=== PATIENT | male | born 1990 | race Caucasian/White ===

== ENCOUNTER 2020-12-16 15:51 | Observation (INO) ==
[2020-12-16] MEDS ORDERED: ONDANSETRON INJ 2 MG/ML 2 ML VIAL IV STA (16:33)
[2020-12-16] MEDS ORDERED: MoRPHine SULFATE 4 MG/ML 1 ML CARP\\VIAL IV PRN (16:33)
[2020-12-16] MEDS ORDERED: MoRPHine SULFATE 4 MG/ML 1 ML CARP\\VIAL IV STA (16:33)
[2020-12-16] MEDS ORDERED: KETOROLAC TROMETHAMINE 15 MG/ML VIAL IV STA (16:33)
--- NOTE | 2020-12-16 16:38 | Emergency Department Note ---
Impression & Plan Acute upper abdominal pain, SBO (small bowel obstruction), Vomiting, History of colon cancer ED Provider Note NAME: DEQUAN MG AGE: 30 SEX: M : 1990 ARRIVES VIA: Walk-In INFORMANT: [Patient][family] ED PROVIDER(S): [Kojo Arshad MD] CHIEF COMPLAINT: Abdominal pain HISTORY OF PRESENT ILLNESS: The patient is a 30-year-old male who presents to the ED with epigastric abdominal pain that has been present all day, for over 9 hours. The patient states the pain is crampy and gets as bad as a 10/10. He has had some vomiting. The patient states that he has not noticed any gas passage from below. No urinary complaints. No fever, chills, cough. He feels short of breath when the pain comes on but otherwise he does not. Patient has a history of colon cancer. He did have a partial colectomy. Patient is currently on chemotherapy treatments, he is due for treatment in 2 days, he gets treatment every 2 weeks. The patient was told recently that his LFTs were elevated. He was also told that his pancreatic enzymes were somewhat elevated. He has no history of heavy alcohol use. He has never had a small bowel obstruction. REVIEW OF SYSTEMS: See HPI for pertinent positives and negatives. A total of ten systems were rev iewed and were otherwise negative. PMHx/PSHx: See Below SOCIAL HISTORY: See Below. PHYSICAL EXAM: GENERAL: Patient is in mild distress from pain. HEENT: No acute trauma, normocephalic atraumatic, mucous membranes moist, no nasal congestion, no scleral icterus. NECK: No stridor, no adenopathy, no meningismus, trachea is midline. LUNGS: Clear to auscultation bilaterally, no wheeze, no rhonchi, breath sounds equal. HEART: Without murmurs gallops or rubs, regular rate and rhythm. ABDOMEN: Soft, no distention, diffusely mildly tender, no hernias, no peritonitis. Scarring consistent with his previous partial colectomy. EXTREMITIES: No cyanosis or edema, full range of motion of all the joints without pain or difficulty, no signs for acute trauma. NEUROLOGIC: Oriented x 3, no acute motor or sensory deficits, no focal weakness. SKIN: No rash, no jaundice, no diaphoresis. DIFFERENTIAL DIAGNOSIS: Appendicitis, testicular torsion, infections, diverticulitis, UTI, obstruction, mesenteric ischemia, aortic pathology, inflammatory bowel disease, renal colic, PUD, pancreatitis, biliary pathology, hernia, volvulus, constipation, as well as other pathologies. EMERGENCY DEPARTMENT COURSE/PROCEDURES: MEDICAL DECISION MAKING: There is no leukocytosis. The patient is mildly anemic but this is baseline looking back at previous testing. There is a normal platelet count. No significant electrolyte abnormality or kidney failure. There were a few subtle liver enzyme elevations. Lipase was not elevated. Covid testing returned negative. Chest x-ray did not show pneumonia, mediastinal widening or free air. Abdominal and pelvis CT showed evidence for a small bowel obstruction, no free air seen, on exam, there was no peritonitis. The patient was not toxic or febrile. Patient received IV saline for hydration. He was given IV Zofran for nausea, IV morphine for pain, IV Toradol for pain. The patient had an NG tube placed to help decompress the bowel. I did speak with him about his findings and the need for a hospital stay. I did speak with general surgery. The patient should be managed medically for now. I did speak with case management, the on-call hospitalist was consulted. 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 Fernandez 08/22/2020 Family History Father Anxiety Grandmother (Maternal) Diabetes Grandfather (Maternal) Hypertension Mother Lung disease Denies family history of Ovarian cancer Prostate cancer Myocardial infarction Breast cancer Colorectal cancer Social History Smoking Status: Never smoker Second Hand Exposure: No; Hx Alcohol Use: Yes Hx Substance Use: Yes Last Used Substance Other:: 08/18 - marijuana Substance Use Type Other:: quit heroin 11 mo ago but has relapsed twice; most recent a few mo ago Preferred Language: Divehi Communication Ability: Effective [employer]il [employer] Scientist Required: No Beliefs That Will Affect Care: None marital status: Single Current Living Situation: Significant Other Current Living Situation Comment: mom and younger brother current occupational status: unemployed Feels Safe at Home: Yes Childhood Exposure to Second-Hand Smoke: Yes Seatbelt Use: sometimes Sunscreen Use: No Assistive Devices: None Allergies Allergies Allergy/AdvReac Type Severity Reaction Status Date / Time dexamethasone Allergy Intermediate WITHDRAW Verified 12/16/20 17:29 AFFECTS diphenhydramine AdvReac Intermediate Anxiety, Verified 12/16/20 17:29 [From Benadryl] RLS SSRI AdvReac Unknown RLS Uncoded 12/16/20 17:29 Home Meds Home Medications Medication Instructions Recorded Confirmed albuterol sulfate 2 puff INH Q4H PRN 09/20/20 12/16/20 ondansetron HCl 8 mg PO TID PRN 09/20/20 12/16/20 guanfacine [Intuniv ER] 2 mg PO HS 12/16/20 12/16/20 multivitamin 1 tab PO DAILY 12/16/20 12/16/20 pantoprazole 40 mg PO DAILY 12/16/20 12/16/20 triamcinolone acetonide 1 applic TOPICAL BID PRN 12/16/20 12/16/20 ziprasidone HCl [Geodon] 20 mg PO QDD 12/16/20 12/16/20 Results & Data (ED) Vital Signs Vital Signs - 24 hr 12/16/20 16:03 12/16/20 16:13 12/16/20 16:20 Temperature 36.8 C Temperature Source Temporal Artery Scan Pulse Rate 83 66 71 Pulse Rate from SpO2 Sensor Respiratory Rate 18 13 15 Blood Pressure 97/65 L Blood Pressure Mean 75 Pulse Oximetry 99 Oxygen Delivery Method Room Air Sepsis Recent Fever Within 48 Hours No Sepsis New/Unexplained Change in Mental Status No Sepsis Action Taken by Nursing No Action Required 12/16/20 16:30 12/16/20 16:40 12/16/20 16:56 Temperature Temperature Source Pulse Rate 78 76 61 Pulse Rate from SpO2 Sensor Respiratory Rate 28 H 15 17 Blood Pressure Blood Pressure Mean Pulse Oximetry Oxygen Delivery Method Sepsis Recent Fever Within 48 Hours Sepsis New/Unexplained Change in Mental Status Sepsis Action Taken by Nursing 12/16/20 17:00 12/16/20 17:10 12/16/20 17:20 Temperature Temperature Source Pulse Rate 69 66 55 L Pulse Rate from SpO2 Sensor Respiratory Rate 18 15 17 Blood Pressure Blood Pressure Mean Pulse Oximetry Oxygen Delivery Method Sepsis Recent Fever Within 48 Hours Sepsis New/Unexplained Change in Mental Status Sepsis Action Taken by Nursing 12/16/20 17:30 12/16/20 17:40 12/16/20 17:57 Temperature Temperature Source Pulse Rate 55 L 60 71 Pulse Rate from SpO2 Sensor 71 Respiratory Rate 18 21 22 Blood Pressure 134/70 Blood Pressure Mean 91 Pulse Oximetry 97 Oxygen Delivery Method Sepsis Recent Fever Within 48 Hours Sepsis New/Unexplained Change in Mental Status Sepsis Action Taken by Nursing 12/16/20 18:00 12/16/20 18:01 12/16/20 18:10 Temperature Temperature Source Pulse Rate 71 77 77 Pulse Rate from SpO2 Sensor 75 77 77 Respiratory Rate 18 19 25 H Blood Pressure 129/65 Blood Pressure Mean 86 Pulse Oximetry 95 98 99 Oxygen Delivery Method Sepsis Recent Fever Within 48 Hours Sepsis New/Unexplained Change in Mental Status Sepsis Action Taken by Nursing 12/16/20 18:20 12/16/20 18:30 12/16/20 18:31 Temperature Temperature Source Pulse Rate 84 63 64 Pulse Rate from SpO2 Sensor 82 61 65 Respiratory Rate 19 13 18 Blood Pressure 141/65 H Blood Pressure Mean 90 Pulse Oximetry 100 100 99 Oxygen Delivery Method Sepsis Recent Fever Within 48 Hours Sepsis New/Unexplained Change in Mental Status Sepsis Action Taken by Nursing 12/16/20 18:40 12/16/20 18:50 12/16/20 19:00 Temperature Temperature Source Pulse Rate 79 66 71 Pulse Rate from SpO2 Sensor 80 68 74 Respiratory Rate 22 18 19 Blood Pressure 146/79 H Blood Pressure Mean 101 Pulse Oximetry 99 100 99 Oxygen Delivery Method Sepsis Recent Fever Within 48 Hours Sepsis New/Unexplained Change in Mental Status Sepsis Action Taken by Nursing 12/16/20 19:01 12/16/20 19:10 Temperature Temperature Source Pulse Rate 71 65 Pulse Rate from SpO2 Sensor 70 65 Respiratory Rate 21 19 Blood Pressure Blood Pressure Mean Pulse Oximetry 100 96 Oxygen Delivery Method Sepsis Recent Fever Within 48 Hours Sepsis New/Unexplained Change in Mental Status Sepsis Action Taken by [facility] Medications Current Medication List: was personally reviewed by me Laboratory Data Attestation: I reviewed the patient's lab results. Result diagrams: 12/16/20 16:58 12/16/20 16:57 Lab Results 12/16/20 12/16/20 12/16/20 Range/Units 16:57 16:58 18:27 WBC 6.60 (4.8-10.8) K/uL RBC 4.57 L (4.7-6.1) M/uL Hgb 12.1 L (14.0-18.0) g/dL Hct 37.2 L (42-52) % MCV 81.4 (80-100) fL MCH 26.5 (25-34) pg MCHC 32.5 (32-36) g/dL RDW Std Deviation 62.3 H (36.4-46.3) fL RDW Coeff of Manuel 21.1 H (11.5-14.5) % Plt Count 158 (130-400) K/uL MPV 9.5 (7.4-10.4) fL Immature Gran % (Auto) 0.3 % Neut % (Auto) 82.2 % Lymph % (Auto) 8.5 % Collier % (Auto) 8.5 % Eos % (Auto) 0.2 % Baso % (Auto) 0.3 % Neut # (Auto) 5.43 (1.4-6.5) K/uL Lymph # (Auto) 0.56 L (1.2-3.4) K/uL Collier # (Auto) 0.56 (0.11-0.59) K/uL Eos # (Auto) 0.01 (0-0.5) K/uL Baso # (Auto) 0.02 (0-0.2) K/uL Immature Gran # (Auto) 0.02 (0.00-0.02) K/uL Anisocytosis Present Ovalocytes 1+ Echinocytes 1+ Sodium 139 (136-145) mmol/L Potassium 4.0 (3.5-5.1) mmol/L Chloride 102 (98-107) mmol/L Carbon Dioxide 29 (21-32) mmol/L Anion Gap 7.0 (3-11) BUN 16 (7-18) mg/dl Creatinine 1.05 (0.6-1.4) mg/dl Est Cr Clr Drug Dosing 91.7 ml/min Est GFR ( Amer) 111.4 Est GFR (Non-Af Amer) 96.1 BUN/Creatinine Ratio 15.3 (10-20) Glucose 99 (70-99) mg/dl Calcium 10.0 (8.5-10.1) mg/dl Total Bilirubin 1.4 H (0.2-1) mg/dl AST 45 H (15-37) U/L ALT 68 (12-78) U/L Alkaline Phosphatase 128 H (45-117) U/L Total Protein 7.3 (6.4-8.2) gm/dl Albumin 4.3 (3.4-5.0) gm/dl Globulin 3.0 (2.5-4.0) gm/dl Albumin/Globulin Ratio 1.5 (0.9-2) Lipase 75 (73-393) U/L COVID-19 Eval [facility] SARS-CoV-2, RNA, NAAT (NEGATIVE) 12/16/20 Range/Units 18:27 WBC (4.8-10.8) K/uL RBC (4.7-6.1) M/uL Hgb (14.0-18.0) g/dL Hct (42-52) % MCV (80-100) fL MCH (25-34) pg MCHC (32-36) g/dL RDW Std Deviation (36.4-46.3) fL RDW Coeff of Manuel (11.5-14.5) % Plt Count (130-400) K/uL MPV (7.4-10.4) fL Immature Gran % (Auto) % Neut % (Auto) % Lymph % (Auto) % Collier % (Auto) % Eos % (Auto) % Baso % (Auto) % Neut # (Auto) (1.4-6.5) K/uL Lymph # (Auto) (1.2-3.4) K/uL Collier # (Auto) (0.11-0.59) K/uL Eos # (Auto) (0-0.5) K/uL Baso # (Auto) (0-0.2) K/uL Immature Gran # (Auto) (0.00-0.02) K/uL Anisocytosis Ovalocytes Echinocytes Sodium (136-145) mmol/L Potassium (3.5-5.1) mmol/L Chloride (98-107) mmol/L Carbon Dioxide (21-32) mmol/L Anion Gap (3-11) BUN (7-18) mg/dl Creatinine (0.6-1.4) mg/dl Est Cr Clr Drug Dosing ml/min Est GFR ( Amer) Est GFR (Non-Af Amer) BUN/Creatinine Ratio (10-20) Glucose (70-99) mg/dl Calcium (8.5-10.1) mg/dl Total Bilirubin (0.2-1) mg/dl AST (15-37) U/L ALT (12-78) U/L Alkaline Phosphatase (45-117) U/L Total Protein (6.4-8.2) gm/dl Albumin (3.4-5.0) gm/dl Globulin (2.5-4.0) gm/dl Albumin/Globulin Ratio (0.9-2) Lipase (73-393) U/L COVID-19 Eval Order SARS-CoV-2, RNA, NAAT NEGATIVE (NEGATIVE) Administered Medications Discontinued Medications Benzocaine/Butamben/Tetracaine HCl (Benzocain/Tetraca/Butam [place] 200 Appln/20 Gm Grimes) Confirm Administered Dose 1 appln EXT .STK-MED ONE Stop: 12/16/20 18:37 Last Admin: 12/16/20 18:36 Dose: 1 appln Documented by: [id number] Sodium Chloride (Nss 1000ml) 1,000 mls @ 999 mls/hr IV .Q1H1M MARISOL Stop: 12/16/20 17:45 Last Infusion: 12/16/20 18:11 Dose: 0 mls/hr Documented by: [id number] Admin: 12/16/20 16:59 Dose: 999 mls/hr Documented by: [id number] Ioversol (Ioversol 100ml) 93 ml IV ONCE ONE Stop: 12/16/20 17:53 Last Admin: 12/16/20 17:53 Dose: 93 ml Documented by: [id number] Ketorolac Tromethamine (Ketorolac Tromethamine 15 Mg/Ml Vial) 15 mg IV NOW STA Stop: 12/16/20 16:34 Last Admin: 12/16/20 16:59 Dose: 15 mg Documented by: [id number] Morphine Sulfate (Morphine Sulfate 4 Mg/Ml 1 Ml Carp\Vial) 4 mg IV NOW STA Stop: 12/16/20 16:34 Last Admin: 12/16/20 16:59 Dose: 4 mg Documented by: [id number] Ondansetron HCl (Ondansetron Inj 2 Mg/Ml 2 Ml Vial) 4 mg IV NOW STA Stop: 12/16/20 16:34 Last Admin: 12/16/20 16:59 Dose: 4 mg Documented by: [id number] Imaging Data Radiologist's Impression: XR chest 1V portable HISTORY: 30 years-old Male abd pain acute generalized abdominal pain with chest pain COMPARISON: CTA of the chest 09/20/2020, chest radiograph 09/20/2020 TECHNIQUE: Portable AP view of the chest FINDINGS: Cardiomediastinal and hilar silhouettes are within normal limits. Left IJ Imuenm-q-Gxys catheter distal tip terminates within the expected location of the proximal to mid SVC. No pneumothorax, pleural effusion, airspace consolidation or overt pulmonary edema. Bones of the chest appear normal. IMPRESSION: No acute process. ABDOMEN AND PELVIS CT WITH IV CONTRAST CT DOSE: 264.56 mGy.cm HISTORY: epig abd pain, poss obstruc TECHNIQUE: Multiaxial CT images of the abdomen and pelvis were performed following the use of intravenous contrast. A dose lowering technique was utilized adhering to the principles of ALARA. COMPARISON STUDY: Abdomen and pelvis CT 09/20/2020. FINDINGS: The lung bases are clear. No pneumoperitoneum. No pneumatosis. A few small scattered bone island seen within the pelvis/hips. These remain unchanged. The liver, gallbladder, adrenal glands, pancreas, and kidneys are unremarkable. No hydronephrosis. No retroperitoneal lymphadenopathy. Normal caliber abdominal aorta. The spleen is top normal in size measuring 12.7 cm in length. The bladder is unremarkable. No pelvic free fluid. Prior rectosigmoid anastomosis. Normal appendix measures up to 6 mm in diameter. This remains unchanged. There are few mildly dilated fluid-filled loops of small bowel seen within the mid to lower abdomen. These measure up to 3.2 cm diameter. There are decompressed distal ileal loops. Apparent transition point seen within the mid pelvis on image 269 at the level of the mid ileum. Therefore, these findings are concerning for a small bowel obstruction. IMPRESSION: 1. A few mildly dilated fluid-filled loops of small bowel within the mid to lower abdomen with an apparent transition point within the mid ileum as described above. Therefore, these findings are concerning for a small bowel obstruction. 2. Prior rectosigmoid anastomosis. 3. Normal appendix. Discharge Plan Visit Data Chief Complaint: Abdominal Pain Stated Complaint: ABD, VOMITITNG ED Provider: Kojo Arshad Discharge Problem: Acute upper abdominal pain, SBO (small bowel obstruction), Vomiting, History of colon cancer Patient Disposition: Admitted As Inpatient Condition: Fair Discharge Instructions Interventions: ED Discharge Assessment Last Done: 12/16/20 20:37 Discharge Problem: Vomiting Qualifiers: Vomiting type: unspecified Vomiting Intractability: non-intractable Nausea presence: without nausea Qualified Code(s): R11.11 - Vomiting without nausea
[2020-12-16] MEDS ORDERED: SODIUM CHLORIDE 0.9% 1000ML 1,000 ML IV SCH (16:45)
--- NOTE | 2020-12-16 17:00 | XRay Report ---
XR chest 1V portable HISTORY: 30 years-old Male abd pain acute generalized abdominal pain with chest pain COMPARISON: CTA of the chest 09/20/2020, chest radiograph 09/20/2020 TECHNIQUE: Portable AP view of the chest FINDINGS: Cardiomediastinal and hilar silhouettes are within normal limits. Left IJ Aagque-p-Tuqy catheter dist al tip terminates within the expected location of the proximal to mid SVC. No pneumothorax, pleural e ffusion, airspace consolidation or overt pulmonary edema. Bones of the chest appear normal. IMPRESSION: No acute process. ACT 112: Negative or not required by law. The above report was generated using voice recognition software. It may contain grammatical, syntax o r spelling errors. Electronically signed by: Anthony Grimes M.D. 12/16/2020 4:59 PM
[2020-12-16 17:06] LABS: Basophils # (auto) 0.02 K/uL (0-0.2); Basophils % (auto) 0.3 %; Eosinophils # (auto) 0.01 K/uL (0-0.5); Eosinophils % (auto) 0.2 %; Hematocrit (blood only) 37.2 % (42-52); Hemoglobin 12.1 g/dL (14.0-18.0); Immature Granulocytes # (auto) 0.02 K/uL (0.00-0.02); Immature Granulocytes % (auto) 0.3 %; Lymphocytes # (auto) 0.56 K/uL (1.2-3.4); Lymphocytes % (auto) 8.5 %; Mean Corpuscular Hemoglobin 26.5 pg (25-34); Mean Corpuscular Hgb Conc 32.5 g/dL (32-36); Mean Corpuscular Volume 81.4 fL (80-100); Mean Platelet Volume 9.5 fL (7.4-10.4); Monocytes # (auto) 0.56 K/uL (0.11-0.59); Monocytes % (auto) 8.5 %; Neutrophils # (auto) 5.43 K/uL (1.4-6.5); Neutrophils % (auto) 82.2 %; Platelet Count 158 K/uL (130-400); RDW Coefficient of Variation 21.1 % (11.5-14.5); RDW Standard Deviation 62.3 fL (36.4-46.3); Red Blood Count 4.57 M/uL (4.7-6.1)
[2020-12-16 17:24] LABS: Albumin Level 4.3 gm/dl (3.4-5.0); BUN Creatinine Ratio 15.3 (10-20); Creatinine Clr Calc Pharmacy 91.7 ml/min; Est GFR (African American) 111.4; Est GFR (Non-African American) 96.1
[2020-12-16 17:24] LABS: Anisocytosis Present; Echinocytes 1+; Ovalocytes 1+
[2020-12-16 17:26] LABS: Albumin Globulin Ratio 1.5 (0.9-2); Bilirubin,Total 1.4 mg/dl (0.2-1); Total Protein 7.3 gm/dl (6.4-8.2)
[2020-12-16] MEDS ORDERED: OPTIRAY 320 100ml IV ONE (17:52)
--- NOTE | 2020-12-16 18:12 | CT Scan Report ---
ABDOMEN AND PELVIS CT WITH IV CONTRAST CT DOSE: 264.56 mGy.cm HISTORY: epig abd pain, poss obstruc TECHNIQUE: Multiaxial CT images of the abdomen and pelvis were performed following the use of intrave nous contrast. A dose lowering technique was utilized adhering to the principles of ALARA. COMPARISON STUDY: Abdomen and pelvis CT 09/20/2020. FINDINGS: The lung bases are clear. No pneumoperitoneum. No pneumatosis. A few small scattered bone i sland seen within the pelvis/hips. These remain unchanged. The liver, gallbladder, adrenal glands, pa ncreas, and kidneys are unremarkable. No hydronephrosis. No retroperitoneal lymphadenopathy. Normal c aliber abdominal aorta. The spleen is top normal in size measuring 12.7 cm in length. The bladder is unremarkable. No pelvic free fluid. Prior rectosigmoid anastomosis. Normal appendix measures up to 6 mm in diameter. This remains unchanged. There are few mildly dilated fluid-filled loops of small todd l seen within the mid to lower abdomen. These measure up to 3.2 cm diameter. There are decompressed d istal ileal loops. Apparent transition point seen within the mid pelvis on image 269 at the level of the mid ileum. Therefore, these findings are concerning for a small bowel obstruction. IMPRESSION: 1. A few mildly dilated fluid-filled loops of small bowel within the mid to lower abdomen with an aaron arent transition point within the mid ileum as described above. Therefore, these findings are concern ing for a small bowel obstruction. 2. Prior rectosigmoid anastomosis. 3. Normal appendix. ACT 112: Negative or not required by law. Electronically signed by: Travis Ball M.D. 12/16/2020 6:10 PM
[2020-12-16] MEDS ORDERED: BENZOCAIN/TETRACA/BUTAM SPRAY 200 APPLN/20 GM SPRY EXT ONE (18:36)
--- NOTE | 2020-12-16 19:06 | XRay Report ---
KUB HISTORY: NG tube placement. COMPARISON: Abdomen and pelvis CT 12/16/2020. FINDINGS: Nasogastric tube terminates in the body of the stomach. Partially visualized left Port-A-Ca th terminates at the SVC. The lung bases appear clear. Mildly dilated gas-filled loops of small bowel consistent with the patient's known bowel obstruction. Residual contrast within the renal collecting systems from the prior CT examination. No pneumoperitoneum or pneumatosis. IMPRESSION: Nasogastric tube terminates in the body of the stomach. ACT 112: Negative or not required by law. Electronically signed by: Travis Ball M.D. 12/16/2020 7:04 PM
--- NOTE | 2020-12-16 19:28 | History & Physical Report ---
Date of Service December 16, 2020 Assessment & Plan (1) Small bowel obstruction: 30 yo M w/ hx Stage 3 colon cancer s/p resection, currently on chemotherapy admitted for N/V secondary to small bowel obstruction. Small Bowel Obstruction - CT A/P with IV contrast showing transition point at mid ileum with decompressed distal ileal loops indicative of SBO. - differential includes adhesions vs. viral gastroenteritis - NG tube on low intermittent suction, confirmed with KUB - NPO - surgery consult, appreciate recommendations going forward (2) Iron deficiency anemia: history of Hg 12.1, Hct 37.2 No recent iron studies, consider repeating outpatient On FOLFOX chemotherapy every 2 weeks, likely contributing. (3) Bipolar 1 disorder, depressed: continue guanfacine ER and ziprasidone per home regimen (4) History of colon surgery: colon resection for pelvic mass found to be stage 3 adenocarcinoma of colon with 2 positive lymph nodes performed at [facility] January 2020 SBO management as above DVT ppx: low risk for DVT; ambulate ad joby FEN/GI: NPO, NG tube to low intermittent suction, IV protonix BID Code status: Full Code Dispo: Med/Surg History of Present Illness Primary Care Provider: Luis Wayne MD 30-year-old male with a past medical history of stage III colon cancer status post surgical resection at [facility], currently on FOLFOX chemotherapy every 2 weeks,[facility]. Presented to the emergency department today for nausea vomiting and abdominal pain that started this morning. States that the abdominal pain started in his mid upper abdominal area and was it intermittent and crampy in nature. States that he had 4 episodes of emesis that were nonbilious, nonbloody without coffee- ground emesis. Of note patient had all of his upper teeth removed approximately 2 weeks ago due to severe abscessing and rotting of his teeth. He has since been on a mostly liquid and soft foods diet.Currently saying that his pain is in the epigastrium is not as bad and pain has relocated to the left lower quadrant. ER course: Pain control with Toradol 15 IV and morphine sulfate 4 mg IV once, CT abdomen pelvis with IV contrast significant for few mildly dilated fluid-filled loops of small bowel within the mid to lower abdomen with apparent transition point within the mid ileum. Concerning for small bowel obstruction. No retroperitoneal lymphadenopathy.NG tube placed. Allergies Allergy/AdvReac Type Severity Reaction Status Date / Time dexamethasone Allergy Intermediate WITHDRAW Verified 12/16/20 17:29 AFFECTS diphenhydramine AdvReac Intermediate Anxiety, Verified 12/16/20 17:29 [From Benadryl] RLS SSRI AdvReac Unknown RLS Uncoded 12/16/20 17:29 Home Medications Medication Instructions Recorded Confirmed Type albuterol sulfate 2 puff INH Q4H PRN 09/20/20 12/16/20 History ondansetron HCl 8 mg PO TID PRN 09/20/20 12/16/20 History guanfacine [Intuniv ER] 2 mg PO HS 12/16/20 12/16/20 History multivitamin 1 tab PO DAILY 12/16/20 12/16/20 History pantoprazole 40 mg PO DAILY 12/16/20 12/16/20 History triamcinolone acetonide 1 applic TOPICAL BID PRN 12/16/20 12/16/20 History ziprasidone HCl [Geodon] 20 mg PO QDD 12/16/20 12/16/20 History Past Med/Surg History Medical History Anxiety Bipolar disorder Chronic back pain Colorectal cancer w/ mets to lymph nodes; treated surgically + plan for chemo following port placement COPD (chronic obstructive pulmonary disease) Depression History of heroin abuse History of migraine COUNCIL (hard of hearing) Iron deficiency anemia PTSD (post-traumatic stress disorder) Surgical History History of bowel resection History of colonoscopy History of esophagogastroduodenoscopy (EGD) History of urologic surgery 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 Fernandez 08/22/2020 Family History Father Anxiety Grandmother (Maternal) Diabetes Grandfather (Maternal) Hypertension Mother Lung disease Denies family history of Ovarian cancer Prostate cancer Myocardial infarction Breast cancer Colorectal cancer Social History Smoking Status: Never smoker Second Hand Exposure: No; Hx Alcohol Use: Yes Hx Substance Use: Yes (pt states he quit) Last Used Substance Other:: 08/18 - marijuana Substance Use Type Other:: quit heroin 11 mo ago but has relapsed twice; most recent a few mo ago Preferred Language: Filipino Communication Ability: Effective Market Development Trainer Required: No Beliefs That Will Affect Care: None marital status: Single Current Living Situation: Significant Other Current Living Situation Comment: mom and younger brother current occupational status: unemployed Feels Safe at Home: Yes Childhood Exposure to Second-Hand Smoke: Yes Seatbelt Use: sometimes Sunscreen Use: No Assistive Devices: None Review of Systems Constitutional: + chills; no fever, no sweats, no body aches and no fatigue Respiratory: no cough, no dyspnea and no pain on inspiration Cardiovascular: no chest pain, no dyspnea, no palpitations, no lightheadedness and no edema Gastrointestinal: + abdominal pain, + heartburn, + nausea and + vomiting; no coffee ground emesis, no hematemesis, no constipation, no diarrhea/loose stools and no blood in stools Physical Exam Physical Exam: Constitutional: thin, young male with NG tube in, in NAD, conversational Eyes: EOMI, pupils equal and reactive bilaterally, no scleral icterus Cardiac: RRR, no murmurs, gallops or rubs. Normal S1, S2 Pulm: CTA BL, no wheezes, rhonchi, crackles or rubs, moving air well throughout both lungs Abd: soft, normal bowel sounds, tender to palp of LLQ, mild tenderness throughout, no rebound, no guarding, not rigid, Extremities: 2+ peripheral pulses, no edema Neuro: no focal deficits, moving all 4 limbs, A&Ox3 Skin: multiple superficial skin wounds from what appears to be previous puncture sites along arms BL, healed surgical scar midline abdomen Results & Data Results & Data ([facility]) Vital Signs (Past 12 Hours) Vital Signs Temp Pulse Resp BP Pulse Ox 12/16/20 16:03 36.8 C 83 18 97/65 L 99 Laboratory Results WBC 6.60 K/uL (4.8-10.8) 12/16/20 16:58 RBC 4.57 M/uL (4.7-6.1) L 12/16/20 16:58 Hgb 12.1 g/dL (14.0-18.0) L 12/16/20 16:58 Hct 37.2 % (42-52) L 12/16/20 16:58 MCV 81.4 fL (80-100) 12/16/20 16:58 MCH 26.5 pg (25-34) 12/16/20 16:58 MCHC 32.5 g/dL (32-36) 12/16/20 16:58 RDW Std Deviation 62.3 fL (36.4-46.3) H 12/16/20 16:58 RDW Coeff of Manuel 21.1 % (11.5-14.5) H 12/16/20 16:58 Plt Count 158 K/uL (130-400) 12/16/20 16:58 MPV 9.5 fL (7.4-10.4) 12/16/20 16:58 Immature Gran % (Auto) 0.3 % 12/16/20 16:58 Neut % (Auto) 82.2 % 12/16/20 16:58 Lymph % (Auto) 8.5 % 12/16/20 16:58 [place]man % (Auto) 8.5 % 12/16/20 16:58 Eos % (Auto) 0.2 % 12/16/20 16:58 Baso % (Auto) 0.3 % 12/16/20 16:58 Neut # (Auto) 5.43 K/uL (1.4-6.5) 12/16/20 16:58 Lymph # (Auto) 0.56 K/uL (1.2-3.4) L 12/16/20 16:58 [place]man # (Auto) 0.56 K/uL (0.11-0.59) 12/16/20 16:58 Eos # (Auto) 0.01 K/uL (0-0.5) 12/16/20 16:58 Baso # (Auto) 0.02 K/uL (0-0.2) 12/16/20 16:58 Immature Gran # (Auto) 0.02 K/uL (0.00-0.02) 12/16/20 16:58 Anisocytosis Present 12/16/20 16:58 Ovalocytes 1+ 12/16/20 16:58 Echinocytes 1+ 12/16/20 16:58 Sodium 139 mmol/L (136-145) 12/16/20 16:57 Potassium 4.0 mmol/L (3.5-5.1) 12/16/20 16:57 Chloride 102 mmol/L (98-107) 12/16/20 16:57 Carbon Dioxide 29 mmol/L (21-32) 12/16/20 16:57 Anion Gap 7.0 (3-11) 12/16/20 16:57 BUN 16 mg/dl (7-18) 12/16/20 16:57 Creatinine 1.05 mg/dl (0.6-1.4) 12/16/20 16:57 Est Cr Clr Drug Dosing 91.7 ml/min 12/16/20 16:57 Est GFR ( Amer) 111.4 12/16/20 16:57 Est GFR (Non-Af Amer) 96.1 12/16/20 16:57 BUN/Creatinine Ratio 15.3 (10-20) 12/16/20 16:57 Glucose 99 mg/dl (70-99) 12/16/20 16:57 Calcium 10.0 mg/dl (8.5-10.1) 12/16/20 16:57 Total Bilirubin 1.4 mg/dl (0.2-1) H 12/16/20 16:57 AST 45 U/L (15-37) H 12/16/20 16:57 ALT 68 U/L (12-78) 12/16/20 16:57 Alkaline Phosphatase 128 U/L (45-117) H 12/16/20 16:57 Total Protein 7.3 gm/dl (6.4-8.2) 12/16/20 16:57 Albumin 4.3 gm/dl (3.4-5.0) 12/16/20 16:57 Globulin 3.0 gm/dl (2.5-4.0) 12/16/20 16:57 Albumin/Globulin Ratio 1.5 (0.9-2) 12/16/20 16:57 Lipase 75 U/L (73-393) 12/16/20 16:57 COVID-19 Eval Order Covid19 [facility] 12/16/20 18:27 SARS-CoV-2, RNA, NAAT NEGATIVE (NEGATIVE) 12/16/20 18:27 Diagnostic Findings ABDOMEN AND PELVIS CT WITH IV CONTRAST IMPRESSION: 1. A few mildly dilated fluid-filled loops of small bowel within the mid to lower abdomen with an apparent transition point within the mid ileum as described above. Therefore, these findings are concerning for a small bowel obstruction. 2. Prior rectosigmoid anastomosis. 3. Normal appendix. Supervising Physician Co-Signing Physician Notes I personally saw and examined the patient. I verified all bateman points and agree with resident physician Dr. Jesika Armas with the following exceptions and/or additions: 30-year-old male with history of colon cancer. Sudden onset nausea, vomiting, abdominal pain. CT with small bowel obstruction. NG tube on low intermittent suction placed in ER. O/E Chest CTAB, HS 1+2, no murmurs, Abdo - LLQ tenderness, BS normal. A/P SBO - Suspect secondary to adhesions. IV fluids, NG tube, NPO. Likely can clamp NG tube tomorrow morning. Discussed limiting morphine use to let bowels resolve earlier. Consult surgery. Resident Activity Tracking Resident Involvement: Resident Care Provided Care Provided: Adult Hospital Medicine
--- NOTE | 2020-12-16 20:58 | Surgery Consultation ---
Date of Consultation December 16, 2020 Assessment & Plan (1) Small bowel obstruction: Patient has been admitted to the hospital by the medical service. We recommend the following: Keep the patient on n.p.o. status Provide hydration with IV fluids Continue NG tube to low continuous suction. We will monitor the patient's abdominal exam along with return of appropriate bowel function at which time additional recommendations concerning his NG tube and diet advancement will be made. We will continue to follow along while the patient is hospitalized. Remainder of plan as directed by the primary service. Supervising Physician Co-Signing Physician Notes I personally saw and evaluated the patient with Adam Johnson PA-C and agree with the assessment and plan. 30 yo male with Hx of colon cancer s/p resection, here with pSBO -Keep NGT this AM -He currently has no abdominal pain or N/V -Will check him later today and if NGT output is minimal and continues to improve will consider removal with start of clears -Will follow History of Present Illness Reason for Consultation: Small bowel obstruction History of Present Illness This is a 30-year-old male with a history of colon cancer. Patient noted that in January 2020 he underwent a colon resection at [facility]. At that time it was noted that his cancer had spread to his bladder and he was therefore transferred to [facility] in [place] where he had additional abdominal surgery to remove a cancerous tumor from his bladder. Patient has since been receiving chemotherapy for his colon cancer. He says his most recent chemotherapy treatment was approximately 2 weeks ago and his next se ssion is due in 2 days. Patient presented to [facility] emergency department earlier today due to abdominal pain along with nausea and vomiting. He notes that he was in his usual state of health yesterday however this morning he noted some vague abdominal pain that did not radiate. He did not note any palliative factors but notes that the pain became worse after eating. He notes that he had nausea with emesis approximately 3-5 times. He notes that he did not have any hematemesis. Because of the symptoms he presented to the emergency department. He has not had any fevers, shakes, chills. He notes that he did have a normal bowel movement earlier this morning. Since that time however he has not passed any flatus or had a bowel movement. In the emergency department the patient did have a CT scan of his abdomen which showed concern for small bowel obstruction. A chest x-ray showed no evidence of pneumonia. Labs were performed were CBC showed white blood cell count was within normal range, globin was 12.1, and hematocrit was 37.2. His platelet count was noted to be within normal range. Chemistry profile did show that his sodium, potassium, BUN, and creatinine were all within normal range. He was noted to have small elevations of his total bilirubin, AST, and alkaline phosphatase. Lipase was noted to be normal and a Covid test was negative. Since arrival to the emergency department he has had an NG tube placed. Proximally 300 cc of bilious material has been obtained. Although the NG tube is uncomfortable for the patient he did note improvement of his abdominal symptoms since placement of this tube. He was in no distress at the time of my interview. Allergies Allergy/AdvReac Type Severity Reaction Status Date / Time dexamethasone Allergy Intermediate WITHDRAW Verified 12/16/20 17:29 AFFECTS diphenhydramine AdvReac Intermediate Anxiety, Verified 12/16/20 17:29 [From Benadryl] RLS SSRI AdvReac Unknown RLS Uncoded 12/16/20 17:29 Home Medications Medication Instructions Recorded Confirmed Type albuterol sulfate 2 puff INH Q4H PRN 09/20/20 12/16/20 History ondansetron HCl 8 mg PO TID PRN 09/20/20 12/16/20 History guanfacine [Intuniv ER] 2 mg PO HS 12/16/20 12/16/20 History multivitamin 1 tab PO DAILY 12/16/20 12/16/20 History pantoprazole 40 mg PO DAILY 12/16/20 12/16/20 History triamcinolone acetonide 1 applic TOPICAL BID PRN 12/16/20 12/16/20 History ziprasidone HCl [Geodon] 20 mg PO QDD 12/16/20 12/16/20 History Patient History Medical History Anxiety Bipolar disorder Chronic back pain Colorectal cancer w/ mets to lymph nodes; treated surgically + plan for chemo following port placement COPD (chronic obstructive pulmonary disease) Depression History of heroin abuse History of migraine [place] (hard of hearing) Iron deficiency anemia PTSD (post-traumatic stress disorder) Surgical History History of bowel resection History of colonoscopy History of esophagogastroduodenoscopy (EGD) History of urologic surgery 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 Fernandez 08/22/2020 Family History Father Anxiety Grandmother (Maternal) Diabetes Grandfather (Maternal) Hypertension Mother Lung disease Denies family history of Ovarian cancer Prostate cancer Myocardial infarction Breast cancer Colorectal cancer Social History Smoking Status: Never smoker Second Hand Exposure: No; Do You Dip or Chew Tobacco: No; Tobacco Cessation Education Requested by Patient: No Hx Alcohol Use: Yes Hx Substance Use: Yes (pt states he quit) Last Used Substance Other:: 08/18 - marijuana Substance Use Type Other:: quit heroin 11 mo ago but has relapsed twice; most recent a few mo ago Preferred Language: Telugu Communication Ability: Effective Starter Cup Powder Mixer Required: No Beliefs That Will Affect Care: None marital status: Single Current Living Situation: Significant Other Current Living Situation Comment: mom and younger brother current occupational status: unemployed Other Information That Helps Us Care for You: No Feels Safe at Home: Yes Safety Concerns: Feels Safe At This Time Childhood Exposure to Second-Hand Smoke: Yes Seatbelt Use: sometimes Sunscreen Use: No Assistive Devices: None Review of Systems Constitutional: no fever and no chills Eyes: no diplopia Ear, Nose, Mouth, Throat: no ear pain Respiratory: no cough and no dyspnea Cardiovascular: no chest pain Gastrointestinal: + abdominal pain, + nausea and + vomiting Genitourinary: no dysuria Musculoskeletal: no back pain Integumentary: no rash Neurologic: no localized weakness Physical Exam Constitutional: well developed and well nourished; no acute distress Eyes: no conjunctival abnormality ENMT: Ears: no hearing impairment An NG tube is in place. Neck: trachea midline Respiratory: normal respiratory effort, lungs clear to auscultation Cardiovascular: Rate/Rhythm: regular rate and regular rhythm Gastrointestinal (Abdomen): Abdomen is soft and nondistended. Bowel sounds are absent. There is no pain with light or deep palpation. There is no rebound tenderness or guarding. Musculoskeletal: No calf tenderness Skin: no rashes, warm and dry Neurologic: moves all extremities Psychiatric: A+Ox3, euthymic affect Results & Data ([facility]) Vital Signs (Past 12 Hours) Vital Signs Temp Pulse Resp BP Pulse Ox 12/16/20 20:20 63 17 96 12/16/20 20:10 78 22 100 12/16/20 20:01 69 20 99 12/16/20 20:00 70 20 117/74 98 12/16/20 19:50 64 21 98 12/16/20 19:40 66 15 98 12/16/20 19:31 65 14 98 12/16/20 19:30 67 12 119/71 97 12/16/20 19:20 64 14 98 12/16/20 19:10 65 19 96 12/16/20 19:01 71 21 100 12/16/20 19:00 71 19 146/79 H 99 12/16/20 18:50 66 18 100 12/16/20 18:40 79 22 99 12/16/20 18:31 64 18 99 12/16/20 18:30 63 13 141/65 H 100 12/16/20 18:20 84 19 100 12/16/20 18:10 77 25 H 99 12/16/20 18:01 77 19 98 12/16/20 18:00 71 18 129/65 95 12/16/20 17:57 71 22 134/70 97 12/16/20 17:40 60 21 12/16/20 17:30 55 L 18 12/16/20 17:20 55 L 17 12/16/20 17:10 66 15 12/16/20 17:00 69 18 12/16/20 16:56 61 17 12/16/20 16:40 76 15 12/16/20 16:30 78 28 H 12/16/20 16:20 71 15 12/16/20 16:13 66 13 12/16/20 16:03 36.8 C 83 18 97/65 L 99 PG Care Time/CCT Total # of Minutes Spent Total Time Spent with Patient: Total time spent is greater than 50% in coordination of care (as documented) at patient's floor/unit and/or counseling patient: Coding Level of Care Code 47982 Inpt Consult Level 5 Diagnoses Small bowel obstruction K56.242
[2020-12-16] MEDS ORDERED: ACETAMINOPHEN 1,000 MG/100 ML VIAL IV PRN (21:09)
[2020-12-16] MEDS ORDERED: NON-FORMULARY MEDICATION (Ondansetron Hcl 8 mg tablet) IV PRN (21:09)
[2020-12-16] MEDS ORDERED: TRIAMCINOLONE ACET 0.1% CR 15 GM TUBE TOP PRN (21:09)
[2020-12-16] MEDS ORDERED: ondansetron HCL 8 MG in DEXTROSE 5% 50 ML IV PRN (21:16)
[2020-12-16] MEDS ORDERED: CHLORASEPTIC 1.4% SOLN 180 ML BTL MT PRN (23:30)
[2020-12-16] MEDS: MoRPHine SULFATE 2 MG/ML CARP IV PRN (23:51)
[2020-12-16] MEDS: PANTOprazole 40 MG in SYRINGE 0 ML IV SCH (23:52)
[2020-12-17] MEDS: guanFACINE HCL 1 MG TAB PO SCH ×2 (00:20→11:29)
[2020-12-17 02:01] LABS: Appearance Urine Clear (Clear); Bacteria Urine Automated Negative (Negative); Bilirubin Urine Negative (Negative); Blood Urine Negative (Negative); Color Urine Dark Yellow; Glucose Urine UA Negative (Negative); Ketones Urine Trace (Negative); Leukocyte Esterase Urine Negative (Negative); Nitrite Urine Negative (Negative); RBC Urine Automated 0-4 /hpf (0-4); Specific Gravity Urine > 1.045 (1.000-1.030); Urobilinogen Urine Negative (Negative); pH Urine >= 9.0 (4.5-7.5)
[2020-12-17 02:11] LABS: Protein Urine 1+ (Negative)
[2020-12-17] MEDS: MoRPHine SULFATE 2 MG/ML CARP IV PRN (04:41)
[2020-12-17] MEDS: PANTOprazole 40 MG in SYRINGE 0 ML IV SCH (08:22)
[2020-12-17] MEDS: HEPARIN 100 UNIT/ML 5ML FLUSH FLUSH PRN ×2 (08:28→15:26)
--- NOTE | 2020-12-17 09:45 | Medical Student Progress Note ---
Date of Service December 17, 2020 Assessment & Plan Admission and Anticipated Discharge Date Admission Date: December 17, 2020 Pt is a 30 M with a pmh of stage 3 colorectal cancer s/p surgical resection, currently treated with FOLFOX chemotherapy, admitted for epigastric pain, n/v secondary to small bowel obstruction. 1) Small Bowel Obstruction - CT A/P with IV contrast showing transition point at mid ileum with decompressed distal ileal loops indicative of SBO. -Removed NG tube -Advancing to clear liquids. If tolerated will advance to full fluids. 2) Bipolar, Anxiety and Depression. - Continuing on home regimen of guanfacine ER and ziprasidone 3) History of Iron deficiency anemia: Hg 12.1, Hct 37.2, On FOLFOX chemotherapy every 2 weeks, likely contributing. - Recommend recheck levels on outpatient 4) History of colon surgery: Colon resection for pelvic mass found to be stage 3 adenocarcinoma of colon with 2 positive lymph nodes performed at [facility] January 2020 - SBO management as above DVT ppx: low risk for DVT; ambulate ad joby FEN/GI: Advanced to full fluids Code status: Full Code Dispo: Med/Surg, if tolerates fluid, discharge today. Supervising Attestation I personally examined the patient and verified all bateman points of history and exam, discussed case, and agree with decision making with Scott KIM. feeling better ate clears then fulls abd soft nd nt no guarding no rebound sbo - likely adhesional, fortunately resolved quickly - stable for home. see discharge summary as well. Subjective Pt is a 30 yo male with a pmh of stage III colorectal cancer status post resection currently on chemotherapy every 2 weeks who presented at the ED Tuesday (12-16-20) for severe epigastric pain shown to be a small bowel obstruction on x-ray. Yesterday morning pt began experiencing symptoms epigastric pain, at times reaching 10/10 in severity. Pt described the pain as "crampy" and with accompanied by emesis. Pt reported not passing any gas. Denied urinary complaints, fever, chills, or a cough. Pt does have a history of colorectal cancer. Received a partial colectomy and is currently being treated with FOLFOX chemotherapy, due in 1 day (12-18-20). CT w/ IV contrast showed mildly dilated fluid filled loops in the mid to lower abdomen. Today, patient described improvement to a 5/10 pain, and endorses passing some gas. Pt is eager to leave and insisted removal of NG tube this AM. Review of Systems Constitutional: no fever and no chills Physical Exam Physical Exam: Gen Appearance: Lying in bed, non-distressed and conversant. Cardio: distant heart sounds, RRR with no RMG appreciated on exam Lungs: CTA Abd: Non-distended, Hypoactive bowel sounds, mildly tender in all for quadrants. Results & Data ([facility]) Vital Signs (Past 12 Hours) Vital Signs Temp Pulse Resp BP Pulse Ox 12/17/20 04:11 36.8 C 60 18 112/66 97 12/16/20 23:01 36.7 C 63 20 113/66 97 12/16/20 21:45 36.6 C 93 H 18 127/76 96
--- NOTE | 2020-12-17 13:53 | Surgery Progress Note ---
Date of Service December 17, 2020 Assessment & Plan (1) SBO (small bowel obstruction): improving he wants to go home, would advance slowly from liquid to soft diet over the next few days will sign off as expect him to be discharged tonight or in AM Admission and Anticipated Discharge Date Admission Date: December 16, 2020 Supervising Physician Co-Signing Physician Notes I personally saw and evaluated the patient with Neri Baker PA-C and agree with the assesment and plan 30 yo male with resolving pSBO -Advance diet as tolerated slowly -If tolerates diet without N/V and continues to have flatus, ok to d/c tonight or tomorrow -Will sign off at this point, please call with any questions or concerns Subjective some flatus, some "soreness" but pain resolved, no nausea since NG removed this morning and had some clears Physical Exam 2 Gastrointestinal (Abdomen): Inspection/Auscultation: abdomen not distended Percussion/Palpation: abdomen soft Results & Data ([facility]) Vital Signs (Past 12 Hours) Vital Signs Temp Pulse Resp BP Pulse Ox 12/17/20 11:31 84 18 106/70 12/17/20 11:27 36.5 C 63 20 113/74 98 12/17/20 04:11 36.8 C 60 18 112/66 97 PG Care Time/CCT Total # of Minutes Spent Total Time Spent with Patient: Total time spent is greater than 50% in coordination of care (as documented) at patient's floor/unit and/or counseling patient: Coding Level of Care Code 57578 Subseq Hosp Care Lvl 1 Diagnoses SBO (small bowel obstruction) K56.609
--- NOTE | 2020-12-17 14:59 | Discharge Summary ---
Date of Service December 17, 2020 Admission HPI Per Admitting Provider 30-year-old male with a past medical history of stage III colon cancer status post surgical resection at [facility], currently on FOLFOX chemotherapy every 2 weeks,[facility]. Presented to the emergency department today for nausea vomiting and abdominal pain that started this morning. States that the abdominal pain started in his mid upper abdominal area and was it intermittent and crampy in nature. States that he had 4 episodes of emesis that were nonbilious, nonbloody without coffee- ground emesis. Of note patient had all of his upper teeth removed approximately 2 weeks ago due to severe abscessing and rotting of his teeth. He has since been on a mostly liquid and soft foods diet.Currently saying that his pain is in the epigastrium is not as bad and pain has relocated to the left lower quadrant. ER course: Pain control with Toradol 15 IV and morphine sulfate 4 mg IV once, CT abdomen pelvis with IV contrast significant for few mildly dilated fluid-filled loops of small bowel within the mid to lower abdomen with apparent transition point within the mid ileum. Concerning for small bowel obstruction. No retroperitoneal lymphadenopathy.NG tube placed. Principal Diagnosis sbo (likely adhesional) Discharge Data Allergies Allergy/AdvReac Type Severity Reaction Status Date / Time dexamethasone Allergy Intermediate WITHDRAW Verified 12/16/20 17:29 AFFECTS diphenhydramine AdvReac Intermediate Anxiety, Verified 12/16/20 17:29 [From Benadryl] RLS SSRI AdvReac Unknown RLS Uncoded 12/16/20 17:29 Consultations 12/16/20 18:23 ED Decision to Admit Stat 12/16/20 19:24 Consult General Surgery Routine Ordered Studies 12/16/20 16:33 CT abd pelvis IV con only Stat Hospital Course (1) Small bowel obstruction: 30 yo M w/ hx Stage 3 colon cancer s/p resection, currently on chemotherapy admitted for N/V secondary to small bowel obstruction. Small Bowel Obstruction - CT A/P with IV contrast showing transition point at mid ileum with decompressed distal ileal loops indicative of SBO. - Had NG tube overnight - In AM feeling better--denied abd pain, n/v - Examined with NTND abdomen, said he had passed flatus - Diet advanced to clear liquids for breakfast an then full liquids for lunch - Tolerated well and was discharged home (2) Iron deficiency anemia: history of this Hg 12.1, Hct 37.2 No recent iron studies, consider repeating as outpatient On FOLFOX chemotherapy every 2 weeks, likely contributing (3) Bipolar 1 disorder, depressed: continued guanfacine ER and ziprasidone per home regimen (4) History of colon surgery: colon resection for pelvic mass found to be stage 3 adenocarcinoma of colon with 2 positive lymph nodes performed at [facility] January 2020 SBO management as above DVT ppx: low risk for DVT; ambulate ad joby FEN/GI: NPO, NG tube to low intermittent suction, IV protonix BID Code status: FUll Code Dispo: Med/Surg Total Time Total Time Spent Total Time Spent (In Minutes): <30 Discharge Plan Discharge Items Patient Disposition: Home - Self-Care Reason For Visit: SMALL BOWEL OBSTRUCTION Discharge Diagnosis: Small Bowel Obstruction Condition on Discharge: Fair Activity: Per Instructions section Non-emergency contact: Primary Care Provider Call non-emergency contact if: you have any medication questions and your symptoms worsen Follow-up/Referrals: Luis Wayne MD [Primary Care Provider] - 12/23/20 2:00 pm Diet: Regular and Full liquid Addtl Attending Provider Instructions: You were admitted to [facility] due to abdominal pain, nausea, and vomiting. You were found to have a small bowel obstruction on abdominal imaging. As such, you had an NG tube placed to clear your GI tract and had no diet until your abdominal pain, nausea, and vomiting were better. As you progressed, your diet was advanced to clear liquid, and then eventually full liquid, which you tolerated well with no further symptoms. The most likely cause of this obstruction is adhesions from your prior abdominal surgeries, which is a very common occurrence. In light of your resolution of symptoms you will be discharged home. We recommend that you continue to advance your diet as tolerated. Please follow-up with your primary care provider for discussion of this admission. If your symptoms return, get worse, or you have new concerning symptoms, please call a medical professional and seek medical care right away. Pending Studies at Discharge: No Stand-Alone Forms: My [employer], Smoking Cessation Medications and DC Order Prescriptions: Continued multivitamin Tablet 1 tab PO DAILY RF: 0 ziprasidone HCl [Geodon] 20 mg capsule 20 mg PO QDD RF: 0 pantoprazole 40 mg tablet,delayed release (DR/EC) 40 mg PO DAILY RF: 0 guanfacine [Intuniv ER] 2 mg tablet extended release 24 hr 2 mg PO HS RF: 0 triamcinolone acetonide 0.1 % cream 1 applic topical BID PRN (Reason: Skin Irritation) RF: 0 ondansetron HCl 8 mg tablet 8 mg PO TID PRN (Reason: Nausea) RF: 0 albuterol sulfate 90 mcg/actuation HFA aerosol inhaler 2 puff INH Q4H PRN (Reason: shortness of breath or wheezing) RF: 0 Discharge Orders: Discharge Order (Routine); Ordered 12/17/20 Ordered By: Antonio Pandya/Other Patient Handouts: Small Bowel Obstruction Admission Data Admit Date/Time: 12/16/20 19:16 Attending Provider: Antonio Holbrook Admit Provider: Jesika Armas Primary Care Provider: Luis Wayne Other Providers: Marlo Urrutia ; Adam Johnson ; [facility] Healthcare Other Interventions: Discharge Summary Assessment (RN) Last Done: 12/17/20 15:20 Supervising Physician Co-Signing Physician Notes I personally examined the patient and verified all bateman points of history and exam, discussed case, and agree with decision making with Dr Jefferson. Patient seen twice today, feeling better. Initially wanted NG tube out before I saw him, Dr. Jefferson directed this removaland by the time I saw him he not only had his NG removed, but also had eating clear liquids which went well. Currently is only on full liquids at home anyway, we advance his diet to full, and when I revisit him later he had no pain no nausea he was feeling fine after having eaten a decent amount of full liquids. Earlier in the day he had also reported to Dr. Jefferson that he had flatus Vitals noted, in general he is awake and alert pleasant no distress. HEENT normocephalic atraumatic mucous membranes moist. Breathing unlabored no accessory muscle use good effort. Skin shows no rashes no pallor or icterus. Neuro shows no focal deficits. Abdomen is soft nondistended nontender no masses organomegaly no guarding no rebound no rigiditythis was all after both a clear liquid diet and full liquid. Small bowel obstructionalmost certainly adhesionalfortunately resolved very quickly. Diet advanced to what he has been taking at home right now. He is tolerating it well, and appears safe for home. Discharged with close outpatient follow-up. otherwise as above Resident Activity Tracking Resident Involvement: Resident Care Provided Care Provided: Adult [facility]
--- NOTE | 2020-12-17 15:51 | Billing Data ---
Date of Service December 17, 2020 Coding Level of Care Code D/C Day Management <30 mins
--- NOTE | 2020-12-18 11:07 | Billing Data ---
Date of Service December 16, 2020 Coding Level of Care Code 36035 Initial Inpt Care Lvl 2
== END 2020-12-17 15:40 | disposition home or self-care (01) ==
LOC: ED 15:51 → SUATTDRO 19:16 → 2N 19:16 → INTOOBSV 19:16 → 2N 20:37

== ENCOUNTER 2020-12-18 23:44 | Inpatient (IN) ==
[2020-12-19] MEDS ORDERED: MoRPHine SULFATE 10 MG/ML CARP/VIAL IV STA (00:07)
[2020-12-19] MEDS ORDERED: SODIUM CHLORIDE 0.9% 1000ML 1,000 ML IV ONE (00:07)
[2020-12-19] MEDS ORDERED: ONDANSETRON INJ 2 MG/ML 2 ML VIAL IV STA (00:07)
--- NOTE | 2020-12-19 00:23 | Emergency Department Note ---
History of Present Illness General Chief complaint: Abdominal Pain Stated complaint: ABD PAINS, VOMITING Time Seen by Provider: 12/18/20 23:57 Source: patient Mode of arrival: ambulatory Limitations: no limitations History of Present Illness Maximum Pain Intensity: 10 This patient is a 30-year-old male who presents to the emergency department for evaluation of abdominal pains and vomiting due to a bowel obstruction. Patient states that he was hospitalized for this, but was discharged 2 days ago. His symptoms returned after discharge. He was seen in the ER earlier today and was found to have a persistent small bowel obstruction, but left AMA at that time. Patient states that he was concerned about receiving an NG tube and also upset that his partner would not be able to stay with him. He states that since returning home, he has had persistent abdominal pain and vomiting. Denies any blood in his vomit. He rates his pain a 9/10. He denies any fevers, chest pain or shortness of breath. Patient has a history of colon cancer, status post colon resection and currently on FOLFOX therapy. Home Medications Medication Instructions Recorded Confirmed Type albuterol sulfate 2 puff INH Q4H PRN 09/20/20 12/19/20 History ondansetron HCl 8 mg PO TID PRN 09/20/20 12/19/20 History guanfacine [Intuniv ER] 2 mg PO HS 12/16/20 12/19/20 History multivitamin 1 tab PO DAILY 12/16/20 12/19/20 History pantoprazole 40 mg PO DAILY 12/16/20 12/19/20 History triamcinolone acetonide 1 applic TOPICAL BID PRN 12/16/20 12/19/20 History ziprasidone HCl [Geodon] 20 mg PO QDD 12/16/20 12/19/20 History ondansetron 4 mg PO Q6H PRN #14 tab 12/18/20 12/19/20 Rx Allergies Allergy/AdvReac Type Severity Reaction Status Date / Time dexamethasone Allergy Intermediate WITHDRAW Verified 12/19/20 00:43 AFFECTS diphenhydramine AdvReac Intermediate Anxiety, Verified 12/19/20 00:43 [From Benadryl] RLS SSRI AdvReac Unknown RLS Uncoded 12/19/20 00:43 Past Med/Surg History Medical History Acute upper abdominal pain Anxiety Bipolar disorder Chronic back pain Colorectal cancer w/ mets to lymph nodes; treated surgically + plan for chemo following port placement COPD (chronic obstructive pulmonary disease) Depression History of colon cancer History of heroin abuse History of migraine [place] (hard of hearing) Iron deficiency anemia PTSD (post-traumatic stress disorder) SBO (small bowel obstruction) Vomiting Surgical History History of bowel resection History of colonoscopy History of esophagogastroduodenoscopy (EGD) History of urologic surgery 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 Fernandez 08/22/2020 Family History Father Anxiety Grandmother (Maternal) Diabetes Grandfather (Maternal) Hypertension Mother Lung disease Denies family history of Ovarian cancer Prostate cancer Myocardial infarction Breast cancer Colorectal cancer Social History Smoking Status: Never smoker Second Hand Exposure: No; Hx Alcohol Use: Yes Hx Substance Use: Yes (pt states he quit) Last Used Substance Other:: 08/18 - marijuana Substance Use Type Other:: quit heroin 11 mo ago but has relapsed twice; most recent a few mo ago Preferred Language: Congolese Communication Ability: Effective Sales Commissions Analyst Required: No Beliefs That Will Affect Care: None marital status: Single Current Living Situation: Significant Other Current Living Situation Comment: mom and younger brother current occupational status: unemployed Feels Safe at Home: Yes Childhood Exposure to Second-Hand Smoke: Yes Seatbelt Use: sometimes Sunscreen Use: No Assistive Devices: None Review of Systems A total of 10 systems reviewed and were otherwise negative Physical Exam Vital Signs Vital Signs - 24 hr 12/18/20 23:52 12/19/20 01:00 12/19/20 01:36 Temperature 36.9 C Temperature Source Temporal Artery Scan Pulse Rate 95 H 74 79 Respiratory Rate 18 20 16 Respiratory Effort / Characteristics Non-Labored Spontaneous Respiratory Depth Normal Blood Pressure 117/73 139/72 Blood Pressure Mean 87 94 Blood Pressure Position Sitting Pulse Oximetry 98 100 99 Oxygen Delivery Method Room Air Room Air Sepsis Recent Fever Within 48 Hours No Sepsis New/Unexplained Change in Mental Status N/A Sepsis Action Taken by Nursing No Action Required VITALS: Vitals are noted on the nurse's note and reviewed by myself. GENERAL: This is a 30-year-old male, uncomfortable appearing, thin. SKIN: The skin was without rashes. EARS: External auditory canals clear, tympanic membranes pearly pedraza without erythema or effusion bilaterally. EYES: Pupils equal round and reactive to light and accommodation. MOUTH: Mucous membranes moist. NECK: Supple without nuchal rigidity. HEART: Regular rate and rhythm without murmurs gallops or rubs. LUNGS: Clear to auscultation bilaterally without wheezes, rales or rhonchi. ABDOMEN: Hypoactive bowel sounds. There is moderate tenderness to palpation throughout the abdomen. No guarding or rebound tenderness. NEURO: Patient was alert and oriented to person place and time. Course Consultations Consultation #1: Dr. Tay - [facility] hospitalist Administered Medications Discontinued Medications Hydromorphone HCl (Hydromorphone Inj 0.5 Mg/0.5 Ml Syr) 0.5 mg IV NOW STA Stop: 12/19/20 01:53 Last Admin: 12/19/20 01:58 Dose: 0.5 mg Documented by: [id number] Sodium Chloride (Nss 1000ml) 1,000 mls @ 999 mls/hr IV .Q1H1M ONE Stop: 12/19/20 01:07 Last Infusion: 12/19/20 01:36 Dose: 0 mls/hr Documented by: [id number] Admin: 12/19/20 00:35 Dose: 999 mls/hr Documented by: [id number] Morphine Sulfate (Morphine Sulfate 10 Mg/Ml Carp/Vial) 6 mg IV NOW STA Stop: 12/19/20 00:08 Last Admin: 12/19/20 00:23 Dose: 6 mg Documented by: [id number] Ondansetron HCl (Ondansetron Inj 2 Mg/Ml 2 Ml Vial) 4 mg IV NOW STA Stop: 12/19/20 00:08 Last Admin: 12/19/20 00:23 Dose: 4 mg Documented by: [id number] Medical Decision Making Differential Diagnosis Differential diagnosis includes appendicitis, diverticulitis, bowel obstruction, inflammatory bowel disease, renal colic, PUD, biliary pathology, pancreatitis, mesenteric ischemia, aortic pathology, infection, genitourinary, UTI, perforated viscus, among others. Medical Records Attestation: I reviewed the patient's medical records. Patient had a CT scan 12/18/2020 which showed progressive small bowel obstruction. Home Medications Current Medication List: was personally reviewed by me Laboratory Data Attestation: I reviewed the patient's lab results. Result diagrams: 12/19/20 00:21 12/19/20 00:21 Lab Results 12/19/20 12/19/20 Range/Units 00:21 00:21 WBC 5.81 (4.8-10.8) K/uL RBC 4.39 L (4.7-6.1) M/uL Hgb 11.7 L (14.0-18.0) g/dL Hct 35.1 L (42-52) % MCV 80.0 (80-100) fL MCH 26.7 (25-34) pg MCHC 33.3 (32-36) g/dL RDW Std Deviation 59.9 H (36.4-46.3) fL RDW Coeff of Manuel 20.5 H (11.5-14.5) % Plt Count 134 (130-400) K/uL MPV 10.2 (7.4-10.4) fL Immature Gran % (Auto) 0.3 % Neut % (Auto) 71.9 % Lymph % (Auto) 16.9 % Pitkin % (Auto) 10.3 % Eos % (Auto) 0.3 % Baso % (Auto) 0.3 % Neut # (Auto) 4.17 (1.4-6.5) K/uL Lymph # (Auto) 0.98 L (1.2-3.4) K/uL Pitkin # (Auto) 0.60 H (0.11-0.59) K/uL Eos # (Auto) 0.02 (0-0.5) K/uL Baso # (Auto) 0.02 (0-0.2) K/uL Immature Gran # (Auto) 0.02 (0.00-0.02) K/uL Platelet Estimate Normal (Normal) Polychromasia 1+ Anisocytosis Present Ovalocytes 1+ Sodium 138 (136-145) mmol/L Potassium 3.3 L (3.5-5.1) mmol/L Chloride 103 (98-107) mmol/L Carbon Dioxide 25 (21-32) mmol/L Anion Gap 9.0 (3-11) BUN 22 H (7-18) mg/dl Creatinine 1.06 (0.6-1.4) mg/dl Est Cr Clr Drug Dosing 88.9 ml/min Est GFR ( Amer) 110.2 Est GFR (Non-Af Amer) 95.0 BUN/Creatinine Ratio 20.4 H (10-20) Glucose 100 H (70-99) mg/dl Calcium 8.9 (8.5-10.1) mg/dl Total Bilirubin 1.4 H (0.2-1) mg/dl AST 38 H (15-37) U/L ALT 59 (12-78) U/L Alkaline Phosphatase 110 (45-117) U/L Total Protein 6.7 (6.4-8.2) gm/dl Albumin 4.1 (3.4-5.0) gm/dl Globulin 2.6 (2.5-4.0) gm/dl Albumin/Globulin Ratio 1.6 (0.9-2) Lipase 132 (73-393) U/L MDM Narrative The patient is a 30-year-old male who presents today complaining of persistent abdominal pain and vomiting. Patient with a recent admission for a small bowel obstruction, seen here earlier today and diagnosed with a persistent bowel obstruction. Patient left AMA at that time. He returns complaining of persistent/worsening symptoms. Patient had CT imaging performed less than 12 hours ago which showed a small bowel obstruction, progressive from his prior imaging. Labs here revealed no leukocytosis, mild anemia, mild LFT elevation, mild hypokalemia, otherwise no concerning electrolyte abnormalities. Patient given IV pain and nausea medication, IV fluids were ordered. NG tube was ordered and inserted by nursing staff. Patient now agreeable to admission. [facility] the patient for further care. Impression & Plan Small bowel obstruction Discharge Plan Visit Data Chief Complaint: Abdominal Pain Stated Complaint: ABD PAINS, VOMITING ED Provider: Seema Licea ED Midlevel Provider: Erika Rubin Discharge Problem: Small bowel obstruction Forms Stand Alone Forms: My [facility] Prescriptions Prescriptions: No Action multivitamin Tablet 1 tab PO DAILY RF: 0 ziprasidone HCl [Geodon] 20 mg capsule 20 mg PO QDD RF: 0 pantoprazole 40 mg tablet,delayed release (DR/EC) 40 mg PO DAILY RF: 0 guanfacine [Intuniv ER] 2 mg tablet extended release 24 hr 2 mg PO HS RF: 0 triamcinolone acetonide 0.1 % cream 1 applic topical BID PRN (Reason: Skin Irritation) RF: 0 ondansetron 4 mg tablet,disintegrating 4 mg PO Q6H PRN (Reason: nausea and vomiting) Qty: 14 RF: 0 ondansetron HCl 8 mg tablet 8 mg PO TID PRN (Reason: Nausea) RF: 0 albuterol sulfate 90 mcg/actuation HFA aerosol inhaler 2 puff INH Q4H PRN (Reason: Shortness Of Breath Or Wheezing) RF: 0
[2020-12-19 00:33] LABS: Mean Corpuscular Hgb Conc 33.3 g/dL (32-36)
[2020-12-19 00:40] LABS: Hematocrit (blood only) 35.1 % (42-52); Hemoglobin 11.7 g/dL (14.0-18.0); Mean Corpuscular Hemoglobin 26.7 pg (25-34); RDW Coefficient of Variation 20.5 % (11.5-14.5); RDW Standard Deviation 59.9 fL (36.4-46.3); Red Blood Count 4.39 M/uL (4.7-6.1); White Blood Count 5.81 K/uL (4.8-10.8)
[2020-12-19 00:53] LABS: Albumin Level 4.1 gm/dl (3.4-5.0); BUN Creatinine Ratio 20.4 (10-20); Calcium 8.9 mg/dl (8.5-10.1); Creatinine Clr Calc Pharmacy 88.9 ml/min; Est GFR (African American) 110.2; Potassium 3.3 mmol/L (3.5-5.1)
[2020-12-19 00:56] LABS: Albumin Globulin Ratio 1.6 (0.9-2); Bilirubin,Total 1.4 mg/dl (0.2-1); Globulin 2.6 gm/dl (2.5-4.0); Total Protein 6.7 gm/dl (6.4-8.2)
[2020-12-19 01:08] LABS: Mean Platelet Volume 10.2 fL (7.4-10.4); Platelet Count 134 K/uL (130-400)
[2020-12-19 01:19] LABS: Anisocytosis Present; Basophils # (auto) 0.02 K/uL (0-0.2); Basophils % (auto) 0.3 %; Eosinophils # (auto) 0.02 K/uL (0-0.5); Eosinophils % (auto) 0.3 %; Immature Granulocytes # (auto) 0.02 K/uL (0.00-0.02); Immature Granulocytes % (auto) 0.3 %; Lymphocytes # (auto) 0.98 K/uL (1.2-3.4); Lymphocytes % (auto) 16.9 %; Monocytes % (auto) 10.3 %; Neutrophils # (auto) 4.17 K/uL (1.4-6.5); Neutrophils % (auto) 71.9 %; Ovalocytes 1+; Platelet Estimate Normal (Normal); Polychromasia 1+
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
[2020-12-19] MEDS ORDERED: HYDROmorphone INJ 0.5 MG/0.5 ML SYR IV STA (01:52)
[2020-12-19] MEDS ORDERED: LORazepam 0.5 MG/1 ML VIAL IV PRN (02:03)
[2020-12-19] MEDS ORDERED: HYDROmorphone INJ 0.5 MG/0.5 ML SYR IV PRN ×2 (03:48→08:22)
[2020-12-19] MEDS ORDERED: PIPERACILL/TAZOBAC CONSULT ACTIVE PRN (03:48)
[2020-12-19] MEDS ORDERED: HEPARIN 100 UNIT/ML 5ML FLUSH ONE (03:56)
[2020-12-19] MEDS: HYDROmorphone INJ 0.5 MG/0.5 ML SYR IV PRN ×2 (03:58→07:35)
[2020-12-19] MEDS ORDERED: PIPERACILLIN/TAZOBACTAM 3.375 GM in DEXTROSE 5% 100 ML IV ONE (04:15)
[2020-12-19] MEDS: NSS + 20MEQ KCL 20 MEQ/1,000 ML BAG IV SCH ×4 (04:51→21:56)
[2020-12-19] MEDS: ACETAMINOPHEN 1,000 MG/100 ML VIAL IV PRN ×3 (04:54→21:51)
[2020-12-19] MEDS ORDERED: ALBUT/IPRATROP 3MG/0.5MG NEB 3 ML VIAL NEB SCH (07:00)
[2020-12-19] MEDS ORDERED: PROMETHAZINE HCL 12.5 MG in SODIUM CHLORIDE 0.9% 50 ML IV PRN (08:22)
--- NOTE | 2020-12-19 08:25 | Surgery Consultation ---
Date of Consultation December 19, 2020 Assessment & Plan (1) SBO (small bowel obstruction): Persistent SBO. Continue NGT, IVF. Will follow along. Supervising Physician Co-Signing Physician Notes Patient seen and examined, labs and imaging reviewed, agree with above. 30-year-old male known to me from prior port placement. He has a history of colorectal cancer with invasion into the bladder requiring several operations. He did have a wound infection after the second surgery that required opening of the wound and healing by secondary intent. He is currently on chemotherapy and received his last dose 2 weeks ago. He was admitted to [facility] earlier this week for suspected small bowel obstruction, which appeared to have resolved. He was anxious to leave and was discharged on the . He tolerated liquids but began to feel sick again on the . He was seen in the emergency department yesterday afternoon and a CT scan revealed worsening of the small bowel obstruction, however he elected to leave AGAINST MEDICAL ADVICE. He then returned later in the evening and was admitted to the medicine service. He had an NG tube placed. He is still complaining of some pain in his abdomen. On exam he is afebrile stable vitals. His abdomen is soft, mildly tender to palpation with no guarding. It does not appear severely distended but the patient is quite thin. CT scan was personally reviewed by myself and I agree with the assessment. This is a small bowel obstruction likely secondary to adhesions. We will continue with nonoperative management. Given the patient's continued chemotherapy and prior surgical history, he may be a candidate for transfer to [place] if surgical intervention is indicated. Surgery will continue to follow along. History of Present Illness Attending Physician: Antonio Holbrook DO History of Present Illness 30 y/o male h/o colon CA admitted 3 days ago for first SBO. NG tube was placed overnight, removed the next morning and he was discharged within 24 hours at his request. While at home had increasing symptoms over the next 24 hours and was re-admitted last night. Had some water at home, pain control is marginal. No flatus. Allergies Allergy/AdvReac Type Severity Reaction Status Date / Time dexamethasone Allergy Intermediate WITHDRAW Verified 12/19/20 00:43 AFFECTS diphenhydramine AdvReac Intermediate Anxiety, Verified 12/19/20 00:43 [From Benadryl] RLS SSRI AdvReac Unknown RLS Uncoded 12/19/20 00:43 Home Medications Medication Instructions Recorded Confirmed Type albuterol sulfate 2 puff INH Q4H PRN 09/20/20 12/19/20 History ondansetron HCl 8 mg PO TID PRN 09/20/20 12/19/20 History guanfacine [Intuniv ER] 2 mg PO HS 12/16/20 12/19/20 History multivitamin 1 tab PO DAILY 12/16/20 12/19/20 History pantoprazole 40 mg PO DAILY 12/16/20 12/19/20 History triamcinolone acetonide 1 applic TOPICAL BID PRN 12/16/20 12/19/20 History ziprasidone HCl [Geodon] 20 mg PO QDD 12/16/20 12/19/20 History ondansetron 4 mg PO Q6H PRN #14 tab 12/18/20 12/19/20 Rx Patient History Medical History Acute upper abdominal pain Anxiety Bipolar disorder Chronic back pain Colorectal cancer w/ mets to lymph nodes; treated surgically + plan for chemo following port placement COPD (chronic obstructive pulmonary disease) Depression History of colon cancer History of heroin abuse History of migraine [place] (hard of hearing) Iron deficiency anemia PTSD (post-traumatic stress disorder) SBO (small bowel obstruction) Vomiting Surgical History History of bowel resection History of colonoscopy History of esophagogastroduodenoscopy (EGD) History of urologic surgery 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 Fernandez 08/22/2020 Family History Father Anxiety Grandmother (Maternal) Diabetes Grandfather (Maternal) Hypertension Mother Lung disease Denies family history of Ovarian cancer Prostate cancer Myocardial infarction Breast cancer Colorectal cancer Social History Smoking Status: Never smoker Second Hand Exposure: No; Hx Alcohol Use: Yes Alcohol type: beer and hard liquor Hx Substance Use: Yes Last Used Substance: Days (ago) Last Used Substance Other:: marijuana used within a few days, heroin months ago. Substance Use Type Other:: quit heroin 11 mo ago but has relapsed twice; most recent a few mo ago Preferred Language: Khmer Communication Ability: Effective Rf Test Technician Required: No Beliefs That Will Affect Care: None marital status: Single Current Living Situation: Significant Other Current Living Situation Comment: mom and younger brother current occupational status: unemployed Other Information That Helps Us Care for You: No Feels Safe at Home: Yes Safety Concerns: Feels Safe At This Time Childhood Exposure to Second-Hand Smoke: Yes Seatbelt Use: sometimes Sunscreen Use: No Assistive Devices: None Review of Systems Constitutional: no fever and no chills Gastrointestinal: + abdominal pain, + nausea and + vomiting Physical Exam Constitutional: WD/WN, vitals as above Respiratory: normal respiratory effort Gastrointestinal (Abdomen): Inspection/Auscultation: + abdomen distended Percussion/Palpation: + abdomen tender (mild) and abdomen soft Results & Data ([facility]) Vital Signs (Past 12 Hours) Vital Signs Temp Pulse Pulse Resp BP BP Pulse Ox 12/19/20 07:26 71 16 98 12/19/20 07:20 36.6 C 71 16 126/66 99 12/19/20 03:34 36.6 C 75 18 122/66 99 12/19/20 03:30 79 12 133/75 98 12/19/20 03:00 77 15 130/71 97 12/19/20 02:30 63 15 127/75 97 12/19/20 02:01 86 16 149/76 H 99 12/19/20 01:36 79 16 139/72 99 12/19/20 01:00 74 20 100 12/18/20 23:52 36.9 C 95 H 18 117/73 98 PG Care Time/CCT Total # of Minutes Spent Total Time Spent with Patient: Total time spent is greater than 50% in coordination of care (as documented) at patient's floor/unit and/or counseling patient: Coding Level of Care Code 18582 Inpt Consult Level 3 Diagnoses SBO (small bowel obstruction) K56.609
--- NOTE | 2020-12-19 08:38 | Hospitalist Progress Note ---
Date of Service December 19, 2020 Assessment & Plan (1) Small bowel obstruction: SBO (small bowel obstruction) - recurrent small bowel obstruction/history of colon cancer status post resection - NPO - Zofran 4 mg IV every 6 hours as needed - Famotidine 20 mg IV every 12 hours - Acetaminophen 1 g IV every 8 hours prn mild pain or fever - Dilaudid 1 mg IV every 2 hours as needed severe pain--needing every 2 hours - NSS + KCl 20 mEq at 150 mils per hour - Consult general surgery: - Persistent SBO. Continue NGT, IVF. Will follow along. - Given pt's continued chemotherapy and prior surgical hx, he may be a candidate for transfer to [place] if surgical intervention is indicated Colorectal cancer - Chemotherapy was canceled on 12/18 due to recurrent symptoms COPD (chronic obstructive pulmonary disease) - Hold as needed albuterol HFA. - Duonebs every 4 hours while awake and every 2 hours when necessary Bipolar 1 disorder - Hold guanfacine ER and Geodon while n.p.o. - Lorazepam 0.5 mg IV every 6 hours as needed FENGI: NPO, NG tube in place DVT ppx: Lovenox 40mg SQ daily Dispo: Med/Surg Code: Full (2) Bipolar 1 disorder, depressed: (3) COPD (chronic obstructive pulmonary disease): (4) Colorectal cancer: Admission and Anticipated Discharge Date Admission Date: December 19, 2020 Supervising Physician Co-Signing Physician Notes I personally examined the patient and verified all bateman points of history and exam, discussed case, and agree with decision making with Dr Jefferson. belly pain. seen at same time as surgery. appearing uncomfortable abd soft but diffusely tender no guarding no rebound recurrent/persistent SBO - follow closely. serial exams. pain control. NGT. time. otherwise as above Subjective Patient seen laying in bed this morning with his at bedside. He is visibly uncomfortable and complaining of significant 10/10 pain that is diffuse. He says he is still nauseous and reported an episode of emesis this AM. He reports that he had felt well enough to want to be discharged a few days ago but pretty much immediately upon returning home symptoms started to return, getting worse yesterday AM. Review of Systems Review of Systems: All systems reviewed & are unremarkable except as noted in Subjective Physical Exam Constitutional: + thin and cooperative in pain Neck: normal visual inspection Respiratory: normal respiratory effort, lungs clear to auscultation no labored breathing Cardiovascular: RRR, no murmur, no edema Heart Sounds: normal S1 and normal S2 Gastrointestinal (Abdomen): Inspection/Auscultation: abdomen not distended Percussion/Palpation: + abdomen tender and abdomen soft; no guarding Skin: no rashes, warm and dry Psychiatric: A+Ox3, euthymic affect Results & Data Results & Data ([facility]) Vital Signs (Past 12 Hours) Vital Signs Temp Pulse Pulse Resp BP BP Pulse Ox 12/19/20 07:26 71 16 98 12/19/20 07:20 36.6 C 71 16 126/66 99 12/19/20 03:34 36.6 C 75 18 122/66 99 12/19/20 03:30 79 12 133/75 98 12/19/20 03:00 77 15 130/71 97 12/19/20 02:30 63 15 127/75 97 12/19/20 02:01 86 16 149/76 H 99 12/19/20 01:36 79 16 139/72 99 12/19/20 01:00 74 20 100 12/18/20 23:52 36.9 C 95 H 18 117/73 98 Resident Activity Tracking Resident Involvement: Resident Care Provided Care Provided: Adult Hospital Medicine
[2020-12-19] MEDS ORDERED: ALBUT/IPRATROP 3MG/0.5MG NEB 3 ML VIAL NEB PRN (08:40)
[2020-12-19] MEDS: FAMOTIDINE 20 MG in SYRINGE 3 ML IV SCH ×2 (08:58→21:52)
[2020-12-19] MEDS ORDERED: PIPERACILLIN/TAZOBACTAM 3.375 GM in DEXTROSE 5% 100 ML IV SCH (10:00)
[2020-12-19] MEDS: HYDROmorphone INJ 1 MG/ML SYRINGE IV PRN ×5 (11:57→23:08)
--- NOTE | 2020-12-19 14:17 | Billing Data ---
Date of Service December 19, 2020 Coding Level of Care Code 87035 Subseq Hosp Care Lvl 2
[2020-12-19] MEDS: ENOXAPARIN INJ 40 MG/0.4 ML SYR SQ SCH (15:18)
[2020-12-19] MEDS: ONDANSETRON INJ 2 MG/ML 2 ML VIAL IV PRN (19:15)
[2020-12-19] MEDS: KETOROLAC TROMETHAMINE 15 MG/ML VIAL IV PRN (19:15)
[2020-12-20] MEDS: HYDROmorphone INJ 1 MG/ML SYRINGE IV PRN ×10 (02:31→23:51)
[2020-12-20] MEDS: ONDANSETRON INJ 2 MG/ML 2 ML VIAL IV PRN ×2 (04:55→15:03)
[2020-12-20] MEDS: NSS + 20MEQ KCL 20 MEQ/1,000 ML BAG IV SCH ×3 (04:59→19:31)
[2020-12-20] MEDS: KETOROLAC TROMETHAMINE 15 MG/ML VIAL IV PRN (06:00)
[2020-12-20] MEDS: ACETAMINOPHEN 1,000 MG/100 ML VIAL IV PRN (06:05)
[2020-12-20 06:27] LABS: Basophils # (auto) 0.03 K/uL (0-0.2); Basophils % (auto) 0.9 %; Eosinophils # (auto) 0.04 K/uL (0-0.5); Eosinophils % (auto) 1.2 %; Hematocrit (blood only) 33.7 % (42-52); Immature Granulocytes # (auto) 0.01 K/uL (0.00-0.02); Immature Granulocytes % (auto) 0.3 %; Lymphocytes # (auto) 0.65 K/uL (1.2-3.4); Lymphocytes % (auto) 19.6 %; Mean Corpuscular Hemoglobin 26.8 pg (25-34); Mean Corpuscular Hgb Conc 32.6 g/dL (32-36); Monocytes # (auto) 1.21 K/uL (0.11-0.59); Monocytes % (auto) 36.4 %; Neutrophils # (auto) 1.38 K/uL (1.4-6.5); Neutrophils % (auto) 41.6 %; Platelet Count 147 K/uL (130-400); RDW Coefficient of Variation 19.9 % (11.5-14.5); RDW Standard Deviation 59.9 fL (36.4-46.3); Red Blood Count 4.11 M/uL (4.7-6.1); White Blood Count 3.32 K/uL (4.8-10.8)
[2020-12-20 07:09] LABS: Albumin Globulin Ratio 1.5 (0.9-2); Albumin Level 3.7 gm/dl (3.4-5.0); BUN Creatinine Ratio 15.8 (10-20); Bilirubin,Total 1.5 mg/dl (0.2-1); Calcium 8.5 mg/dl (8.5-10.1); Creatinine Clr Calc Pharmacy 105.5 ml/min; Est GFR (African American) 136.8; Globulin 2.5 gm/dl (2.5-4.0); Magnesium 2.3 mg/dl (1.8-2.4); Potassium 3.7 mmol/L (3.5-5.1); Total Protein 6.2 gm/dl (6.4-8.2)
--- NOTE | 2020-12-20 07:54 | XRay Report ---
KUB CLINICAL HISTORY: Small bowel obstruction. COMPARISON STUDY: CT of the abdomen and pelvis KUB December 18, 2020. FINDINGS: Tip of nasogastric tube is within the gastric fundus. There is persistent moderate small srinivas wel dilatation. No urinary calculi are identified. IMPRESSION: Findings consistent with a persistent small bowel obstruction. ACT 112: Negative or not required by law. Electronically signed by: Kurt Pitt M.D. 12/20/2020 7:53 AM
[2020-12-20] MEDS: FAMOTIDINE 20 MG in SYRINGE 3 ML IV SCH ×2 (08:11→21:13)
[2020-12-20] MEDS: ENOXAPARIN INJ 40 MG/0.4 ML SYR SQ SCH (08:11)
[2020-12-20] MEDS: TRIAMCINOLONE ACET 0.025% CR 15 GM TUBE EXT PRN (09:23)
--- NOTE | 2020-12-20 10:26 | Hospitalist Progress Note ---
Date of Service December 20, 2020 Assessment & Plan (1) Small bowel obstruction: SBO (small bowel obstruction) - recurrent small bowel obstruction/history of colon cancer status post resection - Continue NPO - Zofran 4 mg IV every 6 hours as needed - Famotidine 20 mg IV every 12 hours - Acetaminophen 1 g IV every 8 hours prn mild pain or fever - Dilaudid 1 mg IV every 2 hours as needed severe pain--needing every 2 hours - NSS + KCl 20 mEq at 150 mils per hour - Consult general surgery: - Continue NG tube to low intermittent wall suction - May start clamp trial if begins to pass flatus - Ambulation - Given hx of multiple abdominal surgeries and chemo, may be a candidate for return to [place] for his surgery if this becomes necessary. Colorectal cancer - Chemotherapy was canceled on 12/18 due to recurrent symptoms COPD (chronic obstructive pulmonary disease) - Hold as needed albuterol HFA. - Duonebs every 4 hours while awake and every 2 hours when necessary Bipolar 1 disorder - Hold guanfacine ER and Geodon while n.p.o. - Lorazepam 0.5 mg IV every 6 hours as needed FENGI: NPO, NG tube in place DVT ppx: Lovenox 40mg SQ daily Dispo: Med/Surg Code: Full (2) Bipolar 1 disorder, depressed: (3) COPD (chronic obstructive pulmonary disease): (4) Colorectal cancer: Admission and Anticipated Discharge Date Admission Date: December 19, 2020 Supervising Physician Co-Signing Physician Notes I personally examined the patient and verified all bateman points of history and exam, discussed case, and agree with decision making with Dr Jefferson. Pain doing better. Still needing pain medicine but at least it appears to be helping, he notes that it is helping now compared to before. Still does have pain and still needs pain medications though. He is still feeling a little bit of nausea. Did have some degree of bowel movements. appearing uncomfortable abd soft fortunately non-tender no guarding no rebound recurrent/persistent SBO -appears to be improving. Continue current care for now. As the nausea abates and his pain continues to improve, then can consider clamping NG. otherwise as above Subjective Feels much better today but still a bit tender. Reports small BM last night but no further flatus or BM. No nausea, vomiting overnight. Pain well controlled now. Review of Systems Review of Systems: All systems reviewed & are unremarkable except as noted in Subjective Physical Exam Constitutional: + thin and cooperative in pain Neck: normal visual inspection Respiratory: normal respiratory effort, lungs clear to auscultation no labored breathing Cardiovascular: RRR, no murmur, no edema Heart Sounds: normal S1 and normal S2 Gastrointestinal (Abdomen): Inspection/Auscultation: abdomen not distended Percussion/Palpation: + abdomen tender and abdomen soft; no guarding Skin: no rashes, warm and dry Psychiatric: A+Ox3, euthymic affect Results & Data Results & Data ([facility]) Vital Signs (Past 12 Hours) Vital Signs Temp Pulse Resp BP Pulse Ox 12/20/20 07:03 36.8 C 72 20 135/80 97 12/19/20 22:34 36.5 C 67 16 132/74 97 Resident Activity Tracking Resident Involvement: Resident Care Provided Care Provided: Adult Hospital Medicine
--- NOTE | 2020-12-20 10:48 | Surgery Progress Note ---
Date of Service December 20, 2020 Assessment & Plan (1) Small bowel obstruction: Small bowel obstruction, clinically somewhat improved but KUB still with persistent SBO Continue NG tube to low intermittent wall suction May start clamp trial if begins to pass flatus Ambulation Given history of multiple abdominal surgeries and chemotherapy, may be a candidate for return to [place] for his surgery if this becomes necessary. Surgery will continue to follow (2) Colorectal cancer: Admission and Anticipated Discharge Date Admission Date: December 19, 2020 Subjective 30-year-old male with history of colon cancer on chemotherapy, admitted with small bowel obstruction. He feels better this morning, did have a small bowel movement yesterday. Physical Exam Constitutional: WD/WN, vitals as above Gastrointestinal (Abdomen): Inspection/Auscultation: + abdomen distended (Less distended than yesterday) and + abdominal surgical scar (Low midline scar) Percussion/Palpation: abdomen soft; abdomen nontender, no guarding and abdomen not rigid Results & Data ([facility]) Vital Signs (Past 12 Hours) Vital Signs Temp Pulse Resp BP Pulse Ox 12/20/20 07:03 36.8 C 72 20 135/80 97 Diagnostic Findings Personally reviewed today's x-ray which showed persistent dilation of the small bowel consistent with small bowel obstruction. KUB CLINICAL HISTORY: Small bowel obstruction. COMPARISON STUDY: CT of the abdomen and pelvis KUB December 18, 2020. FINDINGS: Tip of nasogastric tube is within the gastric fundus. There is persistent moderate small bowel dilatation. No urinary calculi are identified. IMPRESSION: Findings consistent with a persistent small bowel obstruction. PG Care Time/CCT Total # of Minutes Spent Total Time Spent with Patient: Total time spent is greater than 50% in coordination of care (as documented) at patient's floor/unit and/or counseling patient: Coding Level of Care Code 78476 Inpt Consult Level 3 Diagnoses Small bowel obstruction K56.609 Colorectal cancer C19
--- NOTE | 2020-12-20 18:17 | Billing Data ---
Date of Service December 20, 2020 Coding Level of Care Code 50499 Subseq Hosp Care Lvl 2
[2020-12-20] MEDS: HEPARIN 100 UNIT/ML 5ML FLUSH FLUSH PRN ×4 (19:22→23:51)
[2020-12-21] MEDS: NSS + 20MEQ KCL 20 MEQ/1,000 ML BAG IV SCH ×4 (02:06→23:12)
[2020-12-21] MEDS: HYDROmorphone INJ 1 MG/ML SYRINGE IV PRN ×10 (02:08→23:08)
[2020-12-21] MEDS: HEPARIN 100 UNIT/ML 5ML FLUSH FLUSH PRN ×2 (02:08→04:37)
[2020-12-21] MEDS: ACETAMINOPHEN 1,000 MG/100 ML VIAL IV PRN (06:41)
[2020-12-21 07:26] LABS: Hematocrit (blood only) 34.6 % (42-52); Hemoglobin 11.6 g/dL (14.0-18.0); Mean Corpuscular Hemoglobin 27.3 pg (25-34); Mean Corpuscular Hgb Conc 33.5 g/dL (32-36); Mean Corpuscular Volume 81.4 fL (80-100); Mean Platelet Volume 10.4 fL (7.4-10.4); Platelet Count 199 K/uL (130-400); RDW Coefficient of Variation 19.4 % (11.5-14.5); Red Blood Count 4.25 M/uL (4.7-6.1); White Blood Count 3.18 K/uL (4.8-10.8)
--- NOTE | 2020-12-21 07:42 | Hospitalist Progress Note ---
Date of Service December 21, 2020 Assessment & Plan (1) Small bowel obstruction: SBO (small bowel obstruction) - recurrent small bowel obstruction/history of colon cancer status post resection - Continue NPO - Zofran 4 mg IV every 6 hours as needed - Famotidine 20 mg IV every 12 hours - Acetaminophen 1 g IV every 8 hours prn mild pain or fever - Dilaudid 1 mg IV every 2 hours as needed severe pain--needing every 2 hours - NSS + KCl 20 mEq at 150 mils per hour - Consult general surgery: - Continue NG tube to low intermittent wall suction - May start clamp trial if begins to pass flatus - Ambulation - Given hx of multiple abdominal surgeries and chemo, may be a candidate for return to [place] for his surgery if this becomes necessary. - Clamp trial today as patient has had multiple BMs, feeling better, no further symptoms Colorectal cancer - Chemotherapy was canceled on 12/18 due to recurrent symptoms COPD (chronic obstructive pulmonary disease) - Hold as needed albuterol HFA. - Duonebs every 4 hours while awake and every 2 hours when necessary Bipolar 1 disorder - Hold guanfacine ER and Geodon while n.p.o. - Lorazepam 0.5 mg IV every 6 hours as needed FENGI: NPO, NG tube in place DVT ppx: Lovenox 40mg SQ daily Dispo: Med/Surg Code: Full (2) Bipolar 1 disorder, depressed: (3) COPD (chronic obstructive pulmonary disease): (4) Colorectal cancer: Admission and Anticipated Discharge Date Admission Date: December 19, 2020 Supervising Physician Co-Signing Physician Notes I personally examined the patient and verified all bateman points of history and exam, discussed case, and agree with decision making with Dr Jefferson. Pain doing better, felt a little bit hungry, had bowel movements. Whenever we see him he notes that he had taken a walk in the hallway and then got cleaned up in the bathroomand because of this incidentally he had been off of suction for about an hour with his NG tube, and had no clear worsening of symptoms. Vitals noted, in general he is awake and alert appears a little bit brighter than before still quite fatigued but no distress. HEENT normocephalic atraumatic mucous membranes moist. Abdomen soft nondistended nontender no masses organomegaly. NG tube in place with no signs of local breakdown. recurrent/persistent SBO - -SBO persists -Clamped NG tube was a failure -Suction, fluids, time ---> Definitely appreciate ongoing surgical input, while he does not show any acute abdomen, the longer his SBO persists, the more I do question if he will actually need some intraoperative lysis of adhesions. otherwise as above Subjective Feeling much better today. Still some mild pain but much improved from previous days. No n/v. Has had a few BMs since being here, including today. Reports he is now feeling hungry. Went to bathroom and since return had spent about an hour with NG tube disconnected, which caused no discomfort. Review of Systems Review of Systems: All systems reviewed & are unremarkable except as noted in Subjective Physical Exam Physical Exam: Constitutional: Thin male sitting up comfortably in bed, NAD, Cooperative Respiratory: normal respiratory effort, no labored breathing Gastrointestinal: NT/ND, diminished BS Skin: no rashes, warm and dry Psychiatric: A+Ox3, euthymic affect Results & Data Results & Data ([facility]) Vital Signs (Past 12 Hours) Vital Signs Temp Pulse Resp BP Pulse Ox 12/21/20 07:26 36.6 C 63 18 133/69 98 12/20/20 22:44 36.5 C 72 18 126/74 100 Resident Activity Tracking Resident Involvement: Resident Care Provided Care Provided: Adult Hospital Medicine
[2020-12-21 07:43] LABS: Albumin Level 3.7 gm/dl (3.4-5.0); BUN Creatinine Ratio 14.5 (10-20); Calcium 8.8 mg/dl (8.5-10.1); Creatinine Clr Calc Pharmacy 116.3 ml/min; Est GFR (African American) 142.4; Est GFR (Non-African American) 122.8; Potassium 3.9 mmol/L (3.5-5.1)
[2020-12-21 07:46] LABS: Albumin Globulin Ratio 1.4 (0.9-2); Bilirubin,Total 1.2 mg/dl (0.2-1); Globulin 2.6 gm/dl (2.5-4.0); Total Protein 6.3 gm/dl (6.4-8.2)
[2020-12-21 07:59] LABS: Basophils # (auto) 0.05 K/uL (0-0.2); Basophils % (auto) 1.5 %; Eosinophils # (auto) 0.07 K/uL (0-0.5); Eosinophils % (auto) 2.1 %; Immature Granulocytes # (auto) 0.02 K/uL (0.00-0.02); Immature Granulocytes % (auto) 0.6 %; Lymphocytes # (auto) 0.84 K/uL (1.2-3.4); Lymphocytes % (auto) 25.1 %; Monocytes # (auto) 1.38 K/uL (0.11-0.59); Monocytes % (auto) 41.2 %; Neutrophils # (auto) 0.99 K/uL (1.4-6.5); Neutrophils % (auto) 29.5 %; Ovalocytes 1+; Polychromasia 1+; Schistocytes Occasional; Tear Drop Cells Occasional
--- NOTE | 2020-12-21 08:03 | XRay Report ---
KUB CLINICAL HISTORY: Evaluate small bowel obstruction. COMPARISON STUDY: KUB December 20, 2020. FINDINGS: Multiple loops of moderately dilated small bowel are again noted. The findings suggest a pe rsistent small bowel obstruction. Abdominal surgical clips are noted. There is a surgical staple line within the pelvis. IMPRESSION: Findings suggestive of a persistent small bowel obstruction. ACT 112: Negative or not required by law. Electronically signed by: Kurt Pitt M.D. 12/21/2020 8:01 AM
[2020-12-21] MEDS: FAMOTIDINE 20 MG in SYRINGE 3 ML IV SCH ×2 (09:38→20:34)
[2020-12-21] MEDS: ENOXAPARIN INJ 40 MG/0.4 ML SYR SQ SCH (09:38)
--- NOTE | 2020-12-21 11:16 | Surgery Progress Note ---
Date of Service December 21, 2020 Assessment & Plan (1) Small bowel obstruction: Small bowel obstruction, clinically somewhat improved but KUB still with persistent SBO. If no improvement in next 24 to 48 hours, will likely recommend initiation of transfer to [place]. Continue NG tube to low intermittent wall suction May start clamp trial if begins to pass flatus Ambulation Given history of multiple abdominal surgeries and chemotherapy, may be a candidate for return to [place] for his surgery if this becomes necessary. Surgery will continue to follow (2) Colorectal cancer: Admission and Anticipated Discharge Date Admission Date: December 19, 2020 Subjective 30-year-old male with history of colon cancer on chemotherapy, admitted with small bowel obstruction. He feels about the same as he did yesterday, may be slightly better. Has more pain once the pain meds wear off. No flatus, NG 875 in past 24 hours. Physical Exam Constitutional: WD/WN, vitals as above Gastrointestinal (Abdomen): Inspection/Auscultation: + abdomen distended (Less distended than yesterday) and + abdominal surgical scar (Low midline scar) Percussion/Palpation: abdomen soft; abdomen nontender, no guarding and abdomen not rigid Results & Data ([facility]) Vital Signs (Past 12 Hours) Vital Signs Temp Pulse Resp BP Pulse Ox 12/21/20 07:26 36.6 C 63 18 133/69 98 Diagnostic Findings KUB CLINICAL HISTORY: Evaluate small bowel obstruction. COMPARISON STUDY: KUB December 20, 2020. FINDINGS: Multiple loops of moderately dilated small bowel are again noted. The findings suggest a persistent small bowel obstruction. Abdominal surgical clips are noted. There is a surgical staple line within the pelvis. IMPRESSION: Findings suggestive of a persistent small bowel obstruction. PG Care Time/CCT Total # of Minutes Spent Total Time Spent with Patient: Total time spent is greater than 50% in coordination of care (as documented) at patient's floor/unit and/or counseling patient: Coding Level of Care Code 99167 Inpt Consult Level 3 Diagnoses Small bowel obstruction K56.609 Colorectal cancer C19
--- NOTE | 2020-12-21 16:27 | Billing Data ---
Date of Service December 21, 2020 Coding Level of Care Code 88398 Subseq Hosp Care Lvl 3
[2020-12-21] MEDS: ONDANSETRON INJ 2 MG/ML 2 ML VIAL IV PRN (16:44)
[2020-12-21] MEDS: TRIAMCINOLONE ACET 0.025% CR 15 GM TUBE EXT PRN (20:44)
[2020-12-22] MEDS: HYDROmorphone INJ 1 MG/ML SYRINGE IV PRN ×10 (02:22→23:18)
[2020-12-22] MEDS: NSS + 20MEQ KCL 20 MEQ/1,000 ML BAG IV SCH ×3 (05:33→18:12)
[2020-12-22 06:11] LABS: Basophils # (auto) 0.04 K/uL (0-0.2); Basophils % (auto) 1.2 %; Eosinophils # (auto) 0.05 K/uL (0-0.5); Eosinophils % (auto) 1.5 %; Hematocrit (blood only) 35.5 % (42-52); Hemoglobin 11.7 g/dL (14.0-18.0); Immature Granulocytes # (auto) 0.05 K/uL (0.00-0.02); Immature Granulocytes % (auto) 1.5 %; Lymphocytes # (auto) 1.33 K/uL (1.2-3.4); Lymphocytes % (auto) 39.2 %; Mean Corpuscular Hemoglobin 26.7 pg (25-34); Mean Corpuscular Volume 81.1 fL (80-100); Mean Platelet Volume 10.4 fL (7.4-10.4); Monocytes # (auto) 0.46 K/uL (0.11-0.59); Monocytes % (auto) 13.6 %; Neutrophils # (auto) 1.46 K/uL (1.4-6.5); Platelet Count 263 K/uL (130-400); RDW Coefficient of Variation 19.3 % (11.5-14.5); RDW Standard Deviation 57.6 fL (36.4-46.3); Red Blood Count 4.38 M/uL (4.7-6.1); White Blood Count 3.39 K/uL (4.8-10.8)
[2020-12-22 06:40] LABS: Calcium 8.6 mg/dl (8.5-10.1); Creatinine Clr Calc Pharmacy 129.6 ml/min; Est GFR (African American) 148.9; Est GFR (Non-African American) 128.4; Magnesium 2.1 mg/dl (1.8-2.4); Potassium 3.8 mmol/L (3.5-5.1)
[2020-12-22] MEDS: ENOXAPARIN INJ 40 MG/0.4 ML SYR SQ SCH (08:29)
[2020-12-22] MEDS: FAMOTIDINE 20 MG in SYRINGE 3 ML IV SCH ×2 (08:29→20:26)
--- NOTE | 2020-12-22 08:53 | Surgery Progress Note ---
Date of Service December 22, 2020 Assessment & Plan (1) SBO (small bowel obstruction): Patient here with SBO Overall pain is better, but still present He has had some small BM's, but nothing significant and not passing flatus NGT output 1050cc Will evaluate KUB this morning If starts to pass gas can consider NGT clamp trial If no progress may need to consider transfer to [place] for complicated surgical history Admission and Anticipated Discharge Date Admission Date: December 19, 2020 Supervising Physician Co-Signing Physician Notes Patient seen and examined, labs and imaging reviewed, agree with above. Persistent small bowel obstruction. A couple small bowel movements yesterday, NG tube clamp trial performed, patient vomited about 20 minutes before the tube was to be removed. He has been walking. He states he did pass some gas after his most recent walk a few minutes ago. He is feeling better than he did yesterday and better than this morning. On exam is afebrile stable vitals. Abdomen soft, mildly distended, slightly less tender than yesterday. KUB with persistent to slightly worsened distended bowel loop, consistent with small bowel obstruction. The patient states he feels slightly better, however I am concerned about his x-ray. We will continue nonoperative management at our facility for now. Tomorrow, if he is continue to feel better and passed flatus we may trial clamping his NG tube again. If he is not improved or his x-ray is worsening, we will recommend transferring to [place]. Subjective Patient says he is still having pain, although much better than admission he is rating it at a 7 this morning. Denies any nausea/vomiting. Says he had some small BM's since being here, but is not passing much flatus. Physical Exam Physical Exam: awake/alert Respiratory: normal respiratory effort Gastrointestinal (Abdomen): Inspection/Auscultation: abdomen not distended Percussion/Palpation: + abdomen tender (mild discomfort to palpation in lower abdomen) and abdomen soft NGT with brown drainage Results & Data ([facility]) Vital Signs (Past 12 Hours) Vital Signs Temp Pulse Resp BP Pulse Ox 12/22/20 07:54 37.2 C 65 16 133/75 99 12/21/20 23:16 36.7 C 67 16 117/71 97 PG Care Time/CCT Total # of Minutes Spent Total Time Spent with Patient: Total time spent is greater than 50% in coordination of care (as documented) at patient's floor/unit and/or counseling patient: Coding Level of Care Code 45225 Subseq Hosp Care Lvl 1 Diagnoses SBO (small bowel obstruction) K56.609
--- NOTE | 2020-12-22 09:32 | XRay Report ---
KUB HISTORY: Follow up study in a patient with small bowel obstruction SBO COMPARISON: KUB 12/21/2020 FINDINGS: Persistent small bowel dilation measuring up to 4.9 cm, previously measured at approximatel y 4.0 cm. An enteric tube is present with distal tip in the expected location of the gastric fundus, side port within the distal esophagus. Surgical clips project over the mid to lower abdomen. No diana l calculi. No ureteral calculi. No pneumoperitoneum or pneumatosis. No fracture. IMPRESSION: 1. Persistent small bowel obstruction with mildly progressed small bowel dilation. 2. Distal tip of enteric tube projects over the gastric fundus with side port in the distal esophagus . ACT 112: Negative or not required by law. The above report was generated using voice recognition software. It may contain grammatical, syntax o r spelling errors. Electronically signed by: Anthony Grimes M.D. 12/22/2020 9:30 AM
[2020-12-22] MEDS: ONDANSETRON INJ 2 MG/ML 2 ML VIAL IV PRN (11:08)
--- NOTE | 2020-12-22 17:49 | Hospitalist Progress Note ---
Date of Service December 22, 2020 Assessment & Plan (1) Small bowel obstruction: Baljit Edward is a 30 yo M with a PMHx including small bowel obstruction, dermatitis, bipolar 1 disorder, COPD, and colorectal cancer s/p resection, who was admitted to the hospital on 12/19/20 with a small bowel obstruction. SBO (small bowel obstruction) - recurrent small bowel obstruction/history of colon cancer status post resection - Continue NPO - Zofran 4 mg IV every 6 hours as needed - Famotidine 20 mg IV every 12 hours - Acetaminophen 1 g IV every 8 hours prn mild pain or fever - Dilaudid 1 mg IV every 2 hours as needed severe pain-- still needing every 2 hours - NSS + KCl 20 mEq at 150 mils per hour - KUB 12/22/20: persistent SBO with mildly progressed small bowel dilation (increased from 4.0 cm to 4.9 cm today) - Consult general surgery. Recommendations summarized below: - 12/20/20: Continue NG tube to low intermittent wall suction. May start clamp trial if begins to pass flatus. Ambulation. Given hx of multiple abdominal surgeries and chemo, may be a candidate for return to [place] for his surgery if this becomes necessary. - Today, 12/22/20: Feeling better than yesterday; however, concerned about XR. Will continue nonoperative management at our facility for now. Tomorrow, if he is continuing to feel better and passed flatus we may trial clamping his NG tube again. If he is not improved or his XR is worsening, we will recommend transferring to [place]. - Clamp trial performed yesterday, 12/21/19, but patient had episodes of emesis Colorectal cancer - Chemotherapy was canceled on 12/18 due to recurrent symptoms COPD (chronic obstructive pulmonary disease) - Hold as needed albuterol HFA - Duonebs every 4 hours while awake and every 2 hours when necessary Bipolar 1 disorder - Hold guanfacine ER and Geodon while n.p.o. - Lorazepam 0.5 mg IV every 6 hours as needed FENGI: NPO, NG tube in place DVT ppx: Lovenox 40mg SQ daily Dispo: Med/Surg Code: Full (2) Bipolar 1 disorder, depressed: (3) COPD (chronic obstructive pulmonary disease): (4) Colorectal cancer: Admission and Anticipated Discharge Date Admission Date: December 19, 2020 Supervising Physician Co-Signing Physician Notes Patient seen and examined with PGY-1 Dr. Mcadams. Agree with history, exam findings, assessment and plan of care as outlined. In brief, Baljit is a 30 year old male with history of colorectal cancer, bipolar 1 disorder admitted with SBO. Today, he feels a bit better. Abdominal pain is a bit less. He is passing flatus and has been walking in the hallway. NGT on low intermittent suction. 1. SBO in the setting of hx of recurrent SBO and history of colon cancer s/p resection. NPO. Zofran, Pepcid, IV Tylenol, dilaudid. NSS + 20mEq KCl at 150/hr. Continue with low intermittent suction. Will plan to do a trial of clamping tomorrow if he continues to clinically improve and continues to pass flatus. Appreciate continued surgery recommendations. 2. Colorectal cancer. Chemo canceled on 12/18. 3. COPD. Duonebs Q4H and Q2H PRN. 4. Bipolar 1. [place] guanfacine ER and Geodon while NPO. Ativan 0.5mg PRN. Dispo: pending clinical improvement. Subjective Patient seen and evaluated at bedside. He states that he is overall feeling slightly better today. No specific abdominal pain. Does report having a couple "very small" BMs. He does report being hungry. Still with NG tube in place and NPO. Patient is slightly anxious about the plan. Review of Systems Respiratory: no dyspnea Cardiovascular: no chest pain Gastrointestinal: no abdominal pain and no nausea Physical Exam Physical Exam: GENERAL: No acute distress. Well developed and well nourished. EYES: EOMI. Anicteric sclerae. HENT: Dry mucous membranes. NG tube in place. RESPIRATORY: Clear to auscultation bilaterally. No wheezing, rales, or rhonchi. CARDIOVASCULAR: Regular rate and rhythm. No murmurs. ABDOMEN: Soft, non-tender and non-distended. Hypoactive bowel sounds. EXTREMITIES: No edema. Non-tender. PSYCHIATRIC: Cooperative. Appropriate mood and affect. Results & Data Results & Data ([facility]) Vital Signs (Past 12 Hours) Vital Signs Temp Pulse Resp BP Pulse Ox 12/22/20 15:06 37.3 C 69 18 150/77 H 97 12/22/20 07:54 37.2 C 65 16 133/75 99 Resident Activity Tracking Resident Involvement: Resident Care Provided Care Provided: Adult Hospital Medicine
[2020-12-22] MEDS ORDERED: ACETAMINOPHEN 1,000 MG/100 ML VIAL IV PRN (20:33)
[2020-12-23] MEDS: NSS + 20MEQ KCL 20 MEQ/1,000 ML BAG IV SCH ×2 (00:58→07:58)
[2020-12-23 01:59] LABS: Blood Urea Nitrogen 11 mg/dl (7-18); Carbon Dioxide 27 mmol/L (21-32); Chloride 100 mmol/L (98-107); Creatinine Clr Calc Pharmacy 135.4 ml/min; Est GFR (African American) > 150.0; Est GFR (Non-African American) 130.8; Glucose 78 mg/dl (70-99); Potassium 3.7 mmol/L (3.5-5.1); Sodium 137 mmol/L (136-145)
[2020-12-23] MEDS: HYDROmorphone INJ 1 MG/ML SYRINGE IV PRN ×4 (02:07→10:24)
[2020-12-23] MEDS: FAMOTIDINE 20 MG in SYRINGE 3 ML IV SCH (08:00)
[2020-12-23] MEDS: ENOXAPARIN INJ 40 MG/0.4 ML SYR SQ SCH (08:00)
--- NOTE | 2020-12-23 08:38 | XRay Report ---
KUB HISTORY: Follow up study in a patient with small bowel obstruction eval sbo pattern COMPARISON: KUB 12/22/2020 FINDINGS: Dilated air-filled loops of small bowel within the left abdomen measure up to 4.9 cm, stabl e to mildly improved from comparison. Distal tip of enteric tube is again noted projecting over the p roximal stomach with side port in the distal esophagus. Surgical clips of the left lower abdomen. No renal calculi. No ureteral calculi. No pneumoperitoneum or pneumatosis. No fracture. IMPRESSION: Persistent small bowel obstruction with stable positioning of the enteric tube. ACT 112: Negative or not required by law. The above report was generated using voice recognition software. It may contain grammatical, syntax o r spelling errors. Electronically signed by: Anthony Grimes M.D. 12/23/2020 8:36 AM
--- NOTE | 2020-12-23 11:35 | Surgery Progress Note ---
Date of Service December 23, 2020 Assessment & Plan (1) SBO (small bowel obstruction): Patient reports abdominal pain is improving He was passing flatus yesterday. Not passing much today, but feels as though things are rumbling Denies n/v NGT 650cc documented over last 12 hours KUB today revealed dilated air-filled loops of small bowel that are stable to mildly improved from comparison Discussed with pt possibly working on transferring out to [facility], but he prefers to stay if able as he feels better today We recommended an contrast CT study for further evaluation, contrast via NGT Admission and Anticipated Discharge Date Admission Date: December 19, 2020 Supervising Physician Co-Signing Physician Notes Patient was not in room on morning rounds and I did not examine him today. I was made aware of the situation by her physicians first assistant and I did review his imaging studies and his labs. Patient is a 30-year-old male with a history of colon cancer currently on chemotherapy. He was admitted for a small bowel obstruction, though he is left the hospital on multiple occasions AGAINST MEDICAL ADVICE. He has been in the hospital for the past few days and has had marginal return of bowel function with continued obstruction on his x-ray. He was feeling better this morning and still passing a small amount of flatus, but his x-ray showed continued dilation of the small bowel. Plan was to attempt a contrasted CT scan by trickling some Gastrografin down his NG tube, however the patient expressed frustration and said he had things to do and wanted his NG tube removed. He has since checked out AGAINST MEDICAL ADVICE. He stated that if he got sick again he would drive to [place] to get surgery. Subjective Patient states his pain is improving. Denies nausea/vomiting. Says he is trying to take the pain medications less frequently. Denies passing as much gas as yesterday, but feels as though things are "rumbling." Physical Exam Physical Exam: awake/alert Respiratory: normal respiratory effort Gastrointestinal (Abdomen): Inspection/Auscultation: abdomen not distended Percussion/Palpation: abdomen soft; abdomen nontender NGT 650cc documented over 12 hours Results & Data ([facility]) Vital Signs (Past 12 Hours) Vital Signs Temp Pulse Resp BP Pulse Ox 12/23/20 07:27 37.0 C 67 16 142/87 H 99 PG Care Time/CCT Total # of Minutes Spent Total Time Spent with Patient: Total time spent is greater than 50% in coordination of care (as documented) at patient's floor/unit and/or counseling patient: Coding Level of Care Code 64033 Subseq Hosp Care Lvl 1 Diagnoses SBO (small bowel obstruction) K56.609
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
== END 2020-12-23 14:40 | disposition left against medical advice (07) | DRG 389 ==
LOC: ED 23:44 → 3N 12-19 01:54 → SUATTDRO 12-19 01:54 → 3N 12-19 03:27